=== PATIENT | female | born 1975 | race Caucasian/White ===

== ENCOUNTER 2016-07-30 20:45 | Emergency (ER) | payer MEDICARE ==
[2016-07-30] MEDS ORDERED: HYDROcodone/APAP 5/325MG 1 TAB TABLET PO ONE (21:45)
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
[2016-07-30 23:57] LABS: BASO # 0.1 x10^3/uL (0.0-0.2); BASO % 1 % (0-3); EOS % 1 % (0-3); HEMATOCRIT 42.2 % (36.0-47.0); HEMOGLOBIN 14.5 g/dL (12.0-15.5); LYMPH # 1.8 x10^3/uL (1.0-4.8); LYMPH % 17 % (24-48); MEAN CORPUSCULAR HEMOGLOBIN 34 pg (25-35); MEAN CORPUSCULAR HGB CONC 35 g/dL (31-37); MEAN CORPUSCULAR VOLUME 100 fL (79-100); MONO % 11 % (0-9); NEUT % 72 % (31-73); PLATELET COUNT 216 x10^3/uL (140-400); RED BLOOD COUNT 4.23 x10^6/uL (3.50-5.40); RED CELL DISTRIBUTION WIDTH 13.1 % (11.5-14.5); WHITE BLOOD COUNT 10.9 x10^3/uL (4.0-11.0)
[2016-07-31 00:04] LABS: CALCIUM 9.4 mg/dL (8.5-10.1); CREATININE 0.9 mg/dL (0.6-1.0); GFR 68.7; POTASSIUM 3.9 mmol/L (3.5-5.1)
[2016-07-31] MEDS: MORPHINE SULFATE 4 MG/ML DISP.SYRIN. IV/SQ PRN ×2 (00:19→01:10)
[2016-07-31 00:22] LABS: ALBUMIN 3.6 g/dL (3.4-5.0); ALBUMIN/GLOBULIN RATIO 0.7 (1.0-1.7); TOTAL BILIRUBIN 1.1 mg/dL (0.2-1.0); TOTAL PROTEIN 8.5 g/dL (6.4-8.2)
[2016-07-31 01:10] VITALS: BP 147/87
== END 2016-07-31 01:22 | disposition short-term general hospital (02) ==
LOC: EEVIPCON 20:45 → ER 20:45
DX: S02.609A Fracture of mandible, unspecified, initial encounter for closed fracture (principal); S02.2XXA Fracture of nasal bones, initial encounter for closed fracture; S00.11XA Contusion of right eyelid and periocular area, initial encounter; K02.9 Dental caries, unspecified; Y04.0XXA Assault by unarmed brawl or fight, initial encounter; Y93.89 Activity, other specified; Y92.89 Other specified places as the place of occurrence of the external cause; Y99.8 Other external cause status
CPT/HCPCS: 36415; 70450; 70486; 80053; 85027; 96374; 96376; 99285; J2270

== ENCOUNTER 2018-09-07 15:07 | Inpatient (IN) | payer MEDICARE, OTHER ==
[~2018-09-07] VITALS: Ht 167.6 cm; Wt 87.1 kg
[2018-09-07] MEDS ORDERED: IV NORMAL SALINE 1000ML BAG 1,000 ML IV ONE ×2 (15:45→17:00)
[2018-09-07] MEDS ORDERED: ONDANSETRON PF 4 MG/2 ML VIAL. IV ONE (15:45)
[2018-09-07] MEDS ORDERED: MORPHINE SULFATE 4 MG/ML VIAL. IV ONE (15:45)
[2018-09-07 15:50] LABS: BASO # 0.1 x10^3/uL (0.0-0.2); BASO % 1 % (0-3); EOS # 0.1 x10^3/uL (0.0-0.7); EOS % 0 % (0-3); HEMATOCRIT 33.2 % (36.0-47.0); HEMOGLOBIN 11.8 g/dL (12.0-15.5); LYMPH # 1.7 x10^3/uL (1.0-4.8); LYMPH % 12 % (24-48); MEAN CORPUSCULAR HEMOGLOBIN 35 pg (25-35); MEAN CORPUSCULAR HGB CONC 35 g/dL (31-37); MEAN CORPUSCULAR VOLUME 98 fL (79-100); MONO # 1.8 x10^3/uL (0.0-1.1); MONO % 13 % (0-9); NEUT # 10.3 x10^3uL (1.8-7.7); NEUT % 74 % (31-73); PLATELET COUNT 423 x10^3/uL (140-400); RED CELL DISTRIBUTION WIDTH 14.3 % (11.5-14.5); WHITE BLOOD COUNT 13.9 x10^3/uL (4.0-11.0)
[2018-09-07 16:07] LABS: ALBUMIN 2.2 g/dL (3.4-5.0); ALBUMIN/GLOBULIN RATIO 0.4 (1.0-1.7); CALCIUM 9.6 mg/dL (8.5-10.1); CREATININE 1.1 mg/dL (0.6-1.0); TOTAL BILIRUBIN 1.3 mg/dL (0.2-1.0); TOTAL PROTEIN 7.4 g/dL (6.4-8.2)
[2018-09-07 16:11] LABS: POTASSIUM 2.7 mmol/L (3.5-5.1)
[2018-09-07] MEDS: POTASSIUM CHLORIDE 10MEQ 100 ML IV SCH ×2 (16:55→18:27)
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
--- NOTE | 2018-09-07 17:06 | RAD ---
CT maxillofacial without contrast. HISTORY: Open wound lower jaw, increased drainage CT scan was performed through the facial bones without contrast. There is a plate with screws along the mandible on the left. There is an ununited fracture of the mandible. There is lucency about one or 2 of the screws. A chronic infection would be possible. There is lucency about the posterior molar on the right side. There are dental cavities in multiple teeth. There is a small abscess in the root of a molar on the left in the maxilla and on the right, and on the left. No other facial fracture is noted. Orbits are unremarkable. Parotid and submandibular glands are unremarkable. There is soft tissue swelling just lateral to the mandible on the left IMPRESSION: 1. Ununited left mandible fracture with probable chronic osteomyelitis. 2. Extensive dental disease. 3. No other facial fracture noted. PQRS Compliance Statement: One or more of the following individualized dose reduction techniques were utilized for this examination: 1. Automated exposure control 2. Adjustment of the mA and/or kV according to patient size 3. Use of iterative reconstruction technique Electronically signed by: Gavin Teixeira MD (09/07/2018 5:03 PM) [id number]
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
[2018-09-07] MEDS ORDERED: CEFEPIME HCL IV Push 2 GM VIAL. IVP ONE (18:15)
[2018-09-07] MEDS ORDERED: VANCOMYCIN 1.75 GM in IV NORMAL SALINE 500ML BAG 500 ML IV ONE (18:15)
[2018-09-07 18:16] VITALS: BP 86/49
[2018-09-07] MEDS ORDERED: VANCOMYCIN 2 GM in IV NORMAL SALINE 500ML BAG 500 ML IV ONE (19:00)
[2018-09-07 19:15] VITALS: BP 91/58
[2018-09-07] MEDS ORDERED: INSULIN LISPRO 300 UNITS/3 ML INSULN.PEN. SQ ONE (19:45)
[2018-09-07] MEDS ORDERED: DEXTROSE 50% 25 GM / 50ML DISP.SYRIN. IV PRN (19:45)
[2018-09-07] MEDS ORDERED: POTASSIUM CHLORIDE 20 MEQ TABLET.ER. PO ONE (19:45)
[2018-09-07] MEDS: HYDROcodone/APAP 10/325 1 TAB TABLET PO PRN (20:03)
[2018-09-07] MEDS: MORPHINE SULFATE 2 MG/ML VIAL. IV PRN ×2 (20:04→23:40)
[2018-09-07] MEDS: IV NORMAL SALINE 1000ML BAG 1,000 ML IV SCH (20:06)
[2018-09-07] MEDS ORDERED: METF10007 PO (20:11)
[2018-09-07 22:45] VITALS: BP 97/63
[2018-09-07] MEDS: LORazepam 0.5 MG TABLET PO PRN (22:55)
[2018-09-07] MEDS: PIPERACILLIN/TAZOBACTAM 3.375 GM in IV NORMAL SALINE 50ML 50 ML IV SCH (22:55)
[2018-09-08] MEDS: HYDROcodone/APAP 10/325 1 TAB TABLET PO PRN ×5 (02:26→23:02)
[2018-09-08 02:30] VITALS: BP 119/63
[2018-09-08] MEDS: PIPERACILLIN/TAZOBACTAM 3.375 GM in IV NORMAL SALINE 50ML 50 ML IV SCH ×4 (05:18→23:02)
[2018-09-08 05:55] LABS: CALCIUM 8.3 mg/dL (8.5-10.1); CREATININE 0.8 mg/dL (0.6-1.0); GFR 77.9; POTASSIUM 3.3 mmol/L (3.5-5.1)
[2018-09-08] MEDS: LORazepam 0.5 MG TABLET PO PRN ×3 (07:15→23:01)
[2018-09-08 07:44] VITALS: BP 88/48
--- NOTE | 2018-09-08 07:49 | PDOC ---
Provider Note Provider Note Pt seen and examined ID Consult dictated [id number] MELANI Barry MD Sep 08, 2018 07:49
[2018-09-08] MEDS: INSULIN LISPRO 300 UNITS/3 ML INSULN.PEN. SQ SCH ×3 (08:00→17:20)
--- NOTE | 2018-09-08 08:22 | EKG ---
[facility] [address] [place] [address] Test Date: 2018-09-07 Test Time: 16:41:51 Pat Name: STAS GONZALES Department: Room: Gender: F [employer] Generation Specialist: : 1975 Requested By: YOVANY PEÑA Order Number: [id number] Reading MD: Measurements Intervals [place] Rate: 82 P: 38 ME: 164 QRS: 74 QRSD: 96 T: 55 QT: 368 QTc: 432 Interpretive Statements SINUS RHYTHM NON SPECIFIC T ABNORMALITY BORDERLINE ECG No previous ECG available for comparison
--- NOTE | 2018-09-08 08:36 | CONS ---
DATE OF CONSULTATION: 09/08/2018 REFERRING PHYSICIAN: Dr. Soares. REASON FOR CONSULTATION: Antibiotic management for mandibular osteomyelitis. HISTORY OF PRESENT ILLNESS: A 43-year-old homeless female, who presents to the ER on 09/07/2018 with left jaw swelling and open area that is draining foul smelling green pus. The patient had surgery done in 07/2016 for fracture. She had a plate removal done at [facility] last year. She was told that there is another plate which needs to stay in place. She was supposed to have followup after the jaw surgery, but never did. She is a type 2 diabetic, who takes metformin and has been out for the last month. She had increased swelling, fatigue, body ache, worsening drainage and swelling as above. She was found to have lactic acidosis, leukocytosis, hypokalemia, and hyperglycemia. She underwent maxillofacial CT which showed ununited left mandibular fracture with probable chronic osteomyelitis, extensive dental disease, small abscess in the root of the molar on the left in the maxilla and the right and on the left, extensive dental disease, no other facial fracture noted. She received a dose of vancomycin and cefepime. Currently, she is on Zosyn. ID consult has been requested for antibiotic management. Maxillofacial surgeon has been consulted, which is pending at this time. Currently, the patient has swelling, pain over the left jaw with drainage as above, otherwise as above in HPI. REVIEW OF SYSTEMS: Negative except for above in HPI. CURRENT MEDICATIONS: Zosyn. Other medications reviewed in medication list. ALLERGIES: No known drug allergies. SOCIAL HISTORY: Smoking present. Homeless. Denies ETOH. Denies any illicit drug use. FAMILY HISTORY: As per HPI. PHYSICAL EXAMINATION: VITAL SIGNS: Temperature 98.3, pulse 75, respiratory rate 20, blood pressure 119/63, oxygen saturation 95% on room air. GENERAL: Alert, oriented x 3 female, lying in bed comfortably, in no acute distress. HEENT: Normocephalic, atraumatic, anicteric. Left jaw swelling, redness, drainage from an open wound over the left submandibular area, greenish yellow. Poor dentition. NECK: Supple, no JVD. LUNGS: Clear anteriorly. HEART: S1 and S2. No gallops or murmurs. ABDOMEN: Soft, nontender, nondistended. EXTREMITIES: No edema, no cyanosis. NEUROLOGIC: Alert and oriented x 3, grossly nonfocal. DERMATOLOGIC: Warm, dry. No generalized rash except for changes above in the left neck and jaw. PSYCHIATRIC: Cooperative, slightly anxious. LABORATORY DATA: WBC is 13.9, hemoglobin 11.8, hematocrit 33.2, platelets 423, neutrophils 74%. ESR 96. Sodium 137, potassium 3.3, chloride 101, bicarb 29, BUN 7, creatinine 0.8, glucose 167. Lactate 4.3 and repeat is 1.3, magnesium 1.0, albumin 2.2. IMAGING: Maxillofacial CT as above. IMPRESSION: 1. Left mandibular fracture, ununited, with nonhealing draining wound with " Plate in place" per pt with likely chronic osteomyelitis with cellulitis 2. History of mandibular fracture 2 years ago status post surgery with foreign body. 3. Status post removal of one plate ,foreign body a year ago at [facility]. 4. Diabetes mellitus, poorly controlled. 5. Lactic acidosis. 6. Leukocytosis. 7. Protein-calorie malnutrition. 8. Dental abscess. RECOMMENDATIONS: 1. Continue IV Zosyn. 2. Agree with maxillofacial surgeon. 3. The patient will need surgery as antibiotics alone will not be optimal and hardware removal if present also. 4. Follow up lab values. 5. Continue supportive care. 6. Follow up blood cultures. 7. If surgery is done, please send intraoperative cultures. Discussed with RN. Thank you, Dr. Soares, for consulting Infectious Disease to participate in this patient's care. We will follow along with you. MELANI MA MD DR: NAZANIN/jd JOB#: [id number] / [id number] SONIA
[2018-09-08] MEDS ORDERED: ONDANSETRON PF 4 MG/2 ML VIAL. IV PRN (09:30)
--- NOTE | 2018-09-08 10:49 | PDOC ---
PROGRESS NOTES Chief Complaint Chief Complaint left jaw infection SIRS no organ dysfunction/sepsis Homeless Critical hypokalemia secondary to poor by mouth-resolved Thrombocytosis in the background of infection Leukocytosis in the background of infection History of Present Illness History of Present Illness Left jaw seems to be getting better as per her relay She lived in the streets prior to coming here, agreeable to social work for [facility] [place] [facility] on discharge On IV Zosyn per ID Normal saline running at 75 mL Potassium 3.5 from 2.7 WBC 14, platelets 423. Plan Continue Zosyn per ID GI soft diet is okay IV fluids 2 L only then DC Replace potassium Social work consult for homelessness Okay to transfer out of [facility] floor dw RN at bedside maxillofacial surgeon was consulted Vitals Vitals Vital Signs Date Time Temp Pulse Resp B/P (MAP) Pulse Ox O2 Delivery O2 Flow Rate FiO2 09/08/18 09:50 95 Room Air 09/08/18 07:44 97.7 67 18 88/48 (61) 97.7 Physical Exam General: Alert, Oriented X3, Cooperative, Other (left jaw swelling, poor overall dentition, no open skin lesions or drainage) Heart: Regular rate, Normal S1, Normal S2, No murmurs Lungs: Clear Abdomen: Normal bowel sounds, Soft, No tenderness, No hepatosplenomegaly, No masses Extremities: No clubbing, No cyanosis, No edema, Normal pulses, No tenderness/swelling Skin: No rashes, No breakdown, No significant lesion Labs LABS Laboratory Tests Test 09/07/18 15:33 09/07/18 20:55 09/07/18 23:45 09/08/18 05:20 White Blood Count 13.9 x10^3/uL (4.0-11.0) Red Blood Count 3.40 x10^6/uL (3.50-5.40) Hemoglobin 11.8 g/dL (12.0-15.5) Hematocrit 33.2 % (36.0-47.0) Mean Corpuscular Volume 98 fL (79-100) Mean Corpuscular Hemoglobin 35 pg (25-35) Mean Corpuscular Hemoglobin Concent 35 g/dL (31-37) Red Cell Distribution Width 14.3 % (11.5-14.5) Platelet Count 423 x10^3/uL (140-400) Neutrophils (%) (Auto) 74 % (31-73) Lymphocytes (%) (Auto) 12 % (24-48) Monocytes (%) (Auto) 13 % (0-9) Eosinophils (%) (Auto) 0 % (0-3) Basophils (%) (Auto) 1 % (0-3) Neutrophils # (Auto) 10.3 x10^3uL (1.8-7.7) Lymphocytes # (Auto) 1.7 x10^3/uL (1.0-4.8) Monocytes # (Auto) 1.8 x10^3/uL (0.0-1.1) Eosinophils # (Auto) 0.1 x10^3/uL (0.0-0.7) Basophils # (Auto) 0.1 x10^3/uL (0.0-0.2) Erythrocyte Sedimentation Rate 96 (0-25) Sodium Level 131 mmol/L (136-145) 137 mmol/L (136-145) Potassium Level 2.7 mmol/L (3.5-5.1) 3.3 mmol/L (3.5-5.1) Chloride Level 91 mmol/L (98-107) 101 mmol/L (98-107) Carbon Dioxide Level 30 mmol/L (21-32) 29 mmol/L (21-32) Anion Gap 10 (6-14) 7 (6-14) Blood Urea Nitrogen 8 mg/dL (7-20) 7 mg/dL (7-20) Creatinine 1.1 mg/dL (0.6-1.0) 0.8 mg/dL (0.6-1.0) Estimated GFR (Cockcroft-Gault) 54.0 77.9 BUN/Creatinine Ratio 7 (6-20) Glucose Level 352 mg/dL (70-99) 167 mg/dL (70-99) Lactic Acid Level 4.3 mmol/L (0.4-2.0) 1.3 mmol/L (0.4-2.0) Calcium Level 9.6 mg/dL (8.5-10.1) 8.3 mg/dL (8.5-10.1) Magnesium Level 1.0 mg/dL (1.8-2.4) Total Bilirubin 1.3 mg/dL (0.2-1.0) Aspartate Amino Transf (AST/SGOT) 19 U/L (15-37) Alanine Aminotransferase (ALT/SGPT) 33 U/L (14-59) Alkaline Phosphatase 146 U/L (46-116) Total Protein 7.4 g/dL (6.4-8.2) Albumin 2.2 g/dL (3.4-5.0) Albumin/Globulin Ratio 0.4 (1.0-1.7) Glucose (Fingerstick) 308 mg/dL (70-99) Test 09/08/18 07:42 Glucose (Fingerstick) 147 mg/dL (70-99) Assessment and Plan Assessmemt and Plan Problems Medical Problems: (1) Chronic osteomyelitis of jaw Status: Acute (2) Hypokalemia Status: Acute (3) Infection of mandible Status: Acute (4) Septic shock Status: Acute (5) Severe sepsis Status: Acute Comment Review of Relevant I have reviewed the following items javi (where applicable) has been applied. Labs Laboratory Tests Test 09/07/18 15:33 09/07/18 20:55 09/07/18 23:45 09/08/18 05:20 White Blood Count 13.9 x10^3/uL (4.0-11.0) Red Blood Count 3.40 x10^6/uL (3.50-5.40) Hemoglobin 11.8 g/dL (12.0-15.5) Hematocrit 33.2 % (36.0-47.0) Mean Corpuscular Volume 98 fL (79-100) Mean Corpuscular Hemoglobin 35 pg (25-35) Mean Corpuscular Hemoglobin Concent 35 g/dL (31-37) Red Cell Distribution Width 14.3 % (11.5-14.5) Platelet Count 423 x10^3/uL (140-400) Neutrophils (%) (Auto) 74 % (31-73) Lymphocytes (%) (Auto) 12 % (24-48) Monocytes (%) (Auto) 13 % (0-9) Eosinophils (%) (Auto) 0 % (0-3) Basophils (%) (Auto) 1 % (0-3) Neutrophils # (Auto) 10.3 x10^3uL (1.8-7.7) Lymphocytes # (Auto) 1.7 x10^3/uL (1.0-4.8) Monocytes # (Auto) 1.8 x10^3/uL (0.0-1.1) Eosinophils # (Auto) 0.1 x10^3/uL (0.0-0.7) Basophils # (Auto) 0.1 x10^3/uL (0.0-0.2) Erythrocyte Sedimentation Rate 96 (0-25) Sodium Level 131 mmol/L (136-145) 137 mmol/L (136-145) Potassium Level 2.7 mmol/L (3.5-5.1) 3.3 mmol/L (3.5-5.1) Chloride Level 91 mmol/L (98-107) 101 mmol/L (98-107) Carbon Dioxide Level 30 mmol/L (21-32) 29 mmol/L (21-32) Anion Gap 10 (6-14) 7 (6-14) Blood Urea Nitrogen 8 mg/dL (7-20) 7 mg/dL (7-20) Creatinine 1.1 mg/dL (0.6-1.0) 0.8 mg/dL (0.6-1.0) Estimated GFR (Cockcroft-Gault) 54.0 77.9 BUN/Creatinine Ratio 7 (6-20) Glucose Level 352 mg/dL (70-99) 167 mg/dL (70-99) Lactic Acid Level 4.3 mmol/L (0.4-2.0) 1.3 mmol/L (0.4-2.0) Calcium Level 9.6 mg/dL (8.5-10.1) 8.3 mg/dL (8.5-10.1) Magnesium Level 1.0 mg/dL (1.8-2.4) Total Bilirubin 1.3 mg/dL (0.2-1.0) Aspartate Amino Transf (AST/SGOT) 19 U/L (15-37) Alanine Aminotransferase (ALT/SGPT) 33 U/L (14-59) Alkaline Phosphatase 146 U/L (46-116) Total Protein 7.4 g/dL (6.4-8.2) Albumin 2.2 g/dL (3.4-5.0) Albumin/Globulin Ratio 0.4 (1.0-1.7) Glucose (Fingerstick) 308 mg/dL (70-99) Test 09/08/18 07:42 Glucose (Fingerstick) 147 mg/dL (70-99) Laboratory Tests Test 09/07/18 15:33 09/07/18 20:55 09/07/18 23:45 09/08/18 05:20 White Blood Count 13.9 x10^3/uL (4.0-11.0) Red Blood Count 3.40 x10^6/uL (3.50-5.40) Hemoglobin 11.8 g/dL (12.0-15.5) Hematocrit 33.2 % (36.0-47.0) Mean Corpuscular Volume 98 fL (79-100) Mean Corpuscular Hemoglobin 35 pg (25-35) Mean Corpuscular Hemoglobin Concent 35 g/dL (31-37) Red Cell Distribution Width 14.3 % (11.5-14.5) Platelet Count 423 x10^3/uL (140-400) Neutrophils (%) (Auto) 74 % (31-73) Lymphocytes (%) (Auto) 12 % (24-48) Monocytes (%) (Auto) 13 % (0-9) Eosinophils (%) (Auto) 0 % (0-3) Basophils (%) (Auto) 1 % (0-3) Neutrophils # (Auto) 10.3 x10^3uL (1.8-7.7) Lymphocytes # (Auto) 1.7 x10^3/uL (1.0-4.8) Monocytes # (Auto) 1.8 x10^3/uL (0.0-1.1) Eosinophils # (Auto) 0.1 x10^3/uL (0.0-0.7) Basophils # (Auto) 0.1 x10^3/uL (0.0-0.2) Erythrocyte Sedimentation Rate 96 (0-25) Sodium Level 131 mmol/L (136-145) 137 mmol/L (136-145) Potassium Level 2.7 mmol/L (3.5-5.1) 3.3 mmol/L (3.5-5.1) Chloride Level 91 mmol/L (98-107) 101 mmol/L (98-107) Carbon Dioxide Level 30 mmol/L (21-32) 29 mmol/L (21-32) Anion Gap 10 (6-14) 7 (6-14) Blood Urea Nitrogen 8 mg/dL (7-20) 7 mg/dL (7-20) Creatinine 1.1 mg/dL (0.6-1.0) 0.8 mg/dL (0.6-1.0) Estimated GFR (Cockcroft-Gault) 54.0 77.9 BUN/Creatinine Ratio 7 (6-20) Glucose Level 352 mg/dL (70-99) 167 mg/dL (70-99) Lactic Acid Level 4.3 mmol/L (0.4-2.0) 1.3 mmol/L (0.4-2.0) Calcium Level 9.6 mg/dL (8.5-10.1) 8.3 mg/dL (8.5-10.1) Magnesium Level 1.0 mg/dL (1.8-2.4) Total Bilirubin 1.3 mg/dL (0.2-1.0) Aspartate Amino Transf (AST/SGOT) 19 U/L (15-37) Alanine Aminotransferase (ALT/SGPT) 33 U/L (14-59) Alkaline Phosphatase 146 U/L (46-116) Total Protein 7.4 g/dL (6.4-8.2) Albumin 2.2 g/dL (3.4-5.0) Albumin/Globulin Ratio 0.4 (1.0-1.7) Glucose (Fingerstick) 308 mg/dL (70-99) Test 09/08/18 07:42 Glucose (Fingerstick) 147 mg/dL (70-99) Medications Current Medications Sodium Chloride 1,000 ml @ 1,000 mls/hr 1X ONCE IV Last administered on 09/07/18at 15:49; Start 09/07/18 at 15:45; Stop 09/07/18 at 16:44; Status DC Ondansetron HCl (Zofran) 4 mg 1X ONCE IV Last administered on 09/07/18at 15:50; Start 09/07/18 at 15:45; Stop 09/07/18 at 15:46; Status DC Morphine Sulfate (Morphine Sulfate) 4 mg 1X ONCE IV Last administered on 09/07/18at 15:49; Start 09/07/18 at 15:45; Stop 09/07/18 at 15:46; Status DC Sodium Chloride 1,000 ml @ 1,000 mls/hr 1X ONCE IV Last administered on 09/07/18at 16:55; Start 09/07/18 at 17:00; Stop 09/07/18 at 17:59; Status DC Potassium Chloride/Water 100 ml @ 100 mls/hr Q1H IV Last administered on 09/07/18at 18:27; Start 09/07/18 at 17:00; Stop 09/07/18 at 19:41; Status DC Cefepime HCl (Maxipime) 2 gm 1X ONCE IVP Last administered on 09/07/18at 18:43; Start 09/07/18 at 18:15; Stop 09/07/18 at 18:16; Status DC Vancomycin HCl 1.75 gm/Sodium Chloride 500 ml @ 250 mls/hr 1X ONCE IV ; Start 09/07/18 at 18:15; Stop 09/07/18 at 20:14; Status UNV Vancomycin HCl 2 gm/Sodium Chloride 500 ml @ 250 mls/hr ONCE ONCE IV Last administered on 09/07/18at 19:21; Start 09/07/18 at 19:00; Stop 09/07/18 at 20:59; Status DC Piperacillin Sod/ Tazobactam Sod 3.375 gm/Sodium Chloride 50 ml @ 100 mls/hr Q6HRS IV Last administered on 09/08/18at 05:18; Start 09/08/18 at 00:00 Potassium Chloride (Klor-Con) 40 meq 1X ONCE PO Last administered on 09/07/18at 20:03; Start 09/07/18 at 19:45; Stop 09/07/18 at 19:46; Status DC Sodium Chloride 1,000 ml @ 75 mls/hr [id number] IV Last administered on 09/07/18at 20:06; Start 09/07/18 at 19:45 Morphine Sulfate (Morphine Sulfate) 2 mg PRN Q2HR PRN IV PAIN Last administered on 09/07/18at 23:40; Start 09/07/18 at 19:45 Acetaminophen/ Hydrocodone Bitart (Lortab 10/325) 1 tab PRN Q4HRS PRN PO PAIN Last administered on 09/08/18at 07:16; Start 09/07/18 at 19:45 Insulin Human Lispro (HumaLOG) 14 units 1X ONCE SQ Last administered on 09/07/18at 20:05; Start 09/07/18 at 19:45; Stop 09/07/18 at 19:47; Status DC Insulin Human Lispro (HumaLOG) 0-7 UNITS TIDWMEALS SQ ; Start 09/08/18 at 08:00 Dextrose (Dextrose 50%-Water Syringe) 12.5 gm PRN Q15MIN PRN IV SEE COMMENTS; Start 09/07/18 at 19:45 Lorazepam (Ativan) 0.5 mg PRN Q6HRS PRN PO ANXIETY / AGITATION Last administer ed on 09/08/18at 07:15; Start 09/07/18 at 21:45 Nicotine (Nicoderm Cq 21mg) 1 patch DAILY TD ; Start 09/08/18 at 09:00 Ondansetron HCl (Zofran) 4 mg PRN Q6HRS PRN IV NAUSEA/VOMITING; Start 09/08/18 at 09:30 Potassium Chloride (Klor-Con) 20 meq DAILYWBKFT PO ; Start 09/08/18 at 10:00 Active Scripts Active Reported Metformin Hcl 1,000 Mg Tablet 1,000 Mg PO BIDWMEALS Vitals/I & O Vital Sign - Last 24 Hours 09/07/18 09/07/18 09/07/18 09/07/18 15:17 15:49 16:15 17:15 Temp 98.3 98.3 Pulse 99 96 82 Resp 20 18 20 20 B/P (MAP) 128/65 (86) 112/56 (74) 113/63 (80) Pulse Ox 96 96 97 97 O2 Delivery Room Air Room Air Room Air Room Air 09/07/18 09/07/18 09/07/18 09/07/18 18:16 18:30 19:15 20:03 Temp 98.0 98.3 98.0 98.3 Pulse 75 83 Resp 16 18 18 B/P (MAP) 86/49 (61) 91/58 (69) Pulse Ox 95 96 O2 Delivery Room Air Room Air Room Air Room Air 09/07/18 09/07/18 09/07/18 09/07/18 20:04 20:38 22:45 23:40 Temp 98.0 98.0 Pulse 81 Resp 20 20 20 B/P (MAP) 97/63 (74) Pulse Ox 93 O2 Delivery Room Air Room Air Room Air Room Air 09/08/18 09/08/18 09/08/18 09/08/18 00:10 02:26 02:30 03:26 Temp 98.3 98.3 Pulse 75 Resp 20 20 18 20 B/P (MAP) 119/63 (81) Pulse Ox 95 95 O2 Delivery Room Air Room Air Room Air 09/08/18 09/08/18 09/08/18 09/08/18 07:16 07:44 08:00 09:50 Temp 97.7 97.7 Pulse 67 Resp 18 B/P (MAP) 88/48 (61) Pulse Ox 95 95 95 O2 Delivery Room Air Room Air Room Air Room Air Intake and Output 09/07/18 09/07/18 09/08/18 14:59 22:59 06:59 Intake Total 1000 ml 1500 ml Output Total 500 ml 900 ml Balance 500 ml 600 ml SAMI COLON MD Sep 08, 2018 10:49
[2018-09-08 11:00] VITALS: BP 96/54
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
[2018-09-08] MEDS ORDERED: INSULIN LISPRO 300 UNITS/3 ML INSULN.PEN. SQ ONE (13:00)
[2018-09-08] MEDS: POTASSIUM CHLORIDE 20 MEQ TABLET.ER. PO SCH (13:15)
[2018-09-08] MEDS: NICOTINE 21MG PATCH. TD SCH (13:17)
[2018-09-08] MEDS: IV NORMAL SALINE 1000ML BAG 1,000 ML IV SCH ×2 (13:17→22:25)
[2018-09-08] MEDS ORDERED: diphenhydrAMINE HCL 25 MG CAPSULE PO PRN (13:30)
[2018-09-08] MEDS: methylPREDNISolone SOD SUCC PF 40 MG/ML VIAL. IV SCH ×2 (13:44→20:46)
[2018-09-08 15:00] VITALS: BP 115/61
--- NOTE | 2018-09-08 15:27 | NUR ---
SS following up with discharge planning. SS received phone contact from Jean-Claude with the PAT team stating that pt has had previous services with the [facility] and reports history of alcohol abuse. Jean-Claude reported that pt "minimizes her drinking" and has a history of bipolar and depression. He reported that pt reported that she stays on others couches and prefers not to go to a homeless intermediate and does not feel the need for rehab for alcohol use at this time. He reported that he provided pt with a referral to [facility] for services. SS met with pt to discuss discharge planning. Pt reported that she was contacting friends and family to find someone to stay with. Pt reported that she preferred not to go to a homeless intermediate. Pt also requested pants, a shirt, and socks. Pt's RN notified.
--- NOTE | 2018-09-08 16:25 | NUR ---
Wound Care Wound care consult for left jaw injury. Pt has indented incision with open base. Cleansed area and applied Aquacel Ag and Telfa pad. Recommend to change every 3 days. Left elbow and left knee are scabbed abrasions, applied skin prep. No other wounds noted on full skin inspection. Pt educated on PU prevention. WC will continue to follow for possible changes.
[2018-09-08] MEDS: metFORMIN 500 MG TABLET PO SCH (17:15)
[2018-09-08 19:25] VITALS: BP 131/75
[2018-09-08] MEDS ORDERED: INSULIN GLARGINE 300 UNITS/3 ML INSULN.PEN. SQ SCH (21:00)
[2018-09-08 22:23] VITALS: BP 163/92
[2018-09-09 02:44] VITALS: BP 150/82
[2018-09-09] MEDS: PIPERACILLIN/TAZOBACTAM 3.375 GM in IV NORMAL SALINE 50ML 50 ML IV SCH ×4 (04:56→23:58)
[2018-09-09] MEDS: IV NORMAL SALINE 1000ML BAG 1,000 ML IV SCH (04:56)
[2018-09-09] MEDS: LORazepam 0.5 MG TABLET PO PRN ×3 (04:57→22:46)
--- NOTE | 2018-09-09 06:58 | PDOC ---
Infectious Disease Note Subjective: Subjective pt cont to have lt jaw swelling and pain no f/c/n/v cough but chronic ROS: ROS Negative except for above. Vital Signs: Vital Signs Vital Signs Date Time Temp Pulse Resp B/P (MAP) Pulse Ox O2 Delivery O2 Flow Rate FiO2 09/09/18 02:44 98.0 72 18 150/82 (104) 95 Room Air 98.0 Physical Exam: PHYSICAL EXAM GENERAL: Alert, oriented x 3 female, lying in bed comfortably, in no acute distress. HEENT: Normocephalic, atraumatic, anicteric. Left jaw swelling, redness, drainage from an open wound over the left submandibular area, greenish yellow. Poor dentition. NECK: Supple, no JVD. LUNGS: Clear anteriorly. HEART: S1 and S2. No gallops or murmurs. ABDOMEN: Soft, nontender, nondistended. EXTREMITIES: No edema, no cyanosis. NEUROLOGIC: Alert and oriented x 3, grossly nonfocal. DERMATOLOGIC: Warm, dry. No generalized rash except for changes above in the left neck and jaw. PSYCHIATRIC: Cooperative, slightly anxious. Medications: Inpatient Meds: Current Medications Medications (Trade) Dose Ordered Sig/Jose Luis Start Time Stop Time Status Last Admin Dose Admin Acetaminophen/ Hydrocodone Bitart (Lortab 10/325) 1 tab PRN Q4HRS PRN 09/07/18 19:45 09/08/18 23:02 1 TAB Cefepime HCl (Maxipime) 2 gm 1X ONCE 09/07/18 18:15 09/07/18 18:16 DC 09/07/18 18:43 2 GM Dextrose (Dextrose 50%-Water Syringe) 12.5 gm PRN Q15MIN PRN 09/07/18 19:45 Diphenhydramine HCl (Benadryl) 25 mg PRN Q6HRS PRN 09/08/18 13:30 09/08/18 20:47 25 MG Insulin Glargine (Lantus) 15 units QHS 09/08/18 21:00 09/08/18 20:42 15 UNITS Insulin Human Lispro (HumaLOG) 12 units 1X ONCE 09/08/18 13:00 09/08/18 13:01 DC 09/08/18 13:25 12 UNITS Lorazepam (Ativan) 0.5 mg PRN Q6HRS PRN 09/07/18 21:45 09/09/18 04:57 0.5 MG Metformin HCl (Glucophage) 1,000 mg BIDWMEALS 09/08/18 17:00 09/08/18 17:15 1,000 MG Methylprednisolone Sodium Succinate (SOLU-Medrol 40MG VIAL) 40 mg Q12HR 09/08/18 13:30 09/08/18 20:46 40 MG Morphine Sulfate (Morphine Sulfate) 2 mg PRN Q2HR PRN 09/07/18 19:45 09/07/18 23:40 2 MG Nicotine (Nicoderm Cq 21mg) 1 patch DAILY 09/08/18 09:00 09/08/18 13:17 1 PATCH Ondansetron HCl (Zofran) 4 mg PRN Q6HRS PRN 09/08/18 09:30 Piperacillin Sod/ Tazobactam Sod 3.375 gm/Sodium Chloride 50 ml @ 100 mls/hr Q6HRS 09/08/18 00:00 09/09/18 04:56 100 MLS/HR Potassium Chloride/Water 100 ml @ 100 mls/hr Q1H 09/07/18 17:00 09/07/18 19:41 DC 09/07/18 18:27 100 MLS/HR Potassium Chloride (Klor-Con) 20 meq [id number] 09/08/18 10:00 09/08/18 13:15 20 MEQ Sodium Chloride 1,000 ml @ 75 mls/hr [id number] 09/07/18 19:45 09/09/18 04:56 75 MLS/HR Vancomycin HCl 1.75 gm/Sodium Chloride 500 ml @ 250 mls/hr 1X ONCE 09/07/18 18:15 09/07/18 20:14 UNV Vancomycin HCl 2 gm/Sodium Chloride 500 ml @ 250 mls/hr ONCE ONCE 09/07/18 19:00 09/07/18 20:59 DC 09/07/18 19:21 250 MLS/HR Labs: Lab Laboratory Tests Test 09/08/18 07:42 09/08/18 11:41 09/08/18 16:41 09/08/18 20:38 Glucose (Fingerstick) 147 mg/dL (70-99) 376 mg/dL (70-99) 232 mg/dL (70-99) 303 mg/dL (70-99) Objective: Assessment: 1. Left mandibular fracture, ununited, with nonhealing draining wound with " Plate in place" per pt with likely chronic osteomyelitis with cellulitis 2. History of mandibular fracture 2 years ago status post surgery with foreign body. 3. Status post removal of one plate ,foreign body a year ago at [facility]. 4. Diabetes mellitus, poorly controlled. 5. Lactic acidosis. 6. Leukocytosis. 7. Protein-calorie malnutrition. 8. Dental abscess. Plan: Plan of Care Continue IV Zosyn. Agree with maxillofacial surgeon evaluation,pending at this time Patient will need surgery as antibiotics alone will not be optimal and hardware removal if present also. Follow up lab values. Continue supportive care. Follow up blood cultures. When surgery is done, please send intraoperative cultures including jose e, fungal and afb Discussed with RN. MELANI MA MD Sep 09, 2018 06:58
[2018-09-09 07:00] VITALS: BP 143/88
[2018-09-09] MEDS: POTASSIUM CHLORIDE 20 MEQ TABLET.ER. PO SCH (08:36)
[2018-09-09] MEDS: metFORMIN 500 MG TABLET PO SCH ×2 (08:36→17:37)
[2018-09-09] MEDS: methylPREDNISolone SOD SUCC PF 40 MG/ML VIAL. IV SCH ×2 (08:36→21:14)
[2018-09-09] MEDS: HYDROcodone/APAP 10/325 1 TAB TABLET PO PRN ×4 (08:36→22:47)
[2018-09-09] MEDS: NICOTINE 21MG PATCH. TD SCH (08:36)
[2018-09-09] MEDS: INSULIN LISPRO 300 UNITS/3 ML INSULN.PEN. SQ SCH ×3 (08:44→17:43)
[2018-09-09] MEDS ORDERED: DEXTROSE 50% 25 GM / 50ML DISP.SYRIN. IV PRN (09:15)
[2018-09-09 09:55] LABS: BASO % 0 % (0-3); EOS % 0 % (0-3); LYMPH # 1.5 x10^3/uL (1.0-4.8); LYMPH % 14 % (24-48); MEAN CORPUSCULAR HEMOGLOBIN 35 pg (25-35); MEAN CORPUSCULAR HGB CONC 34 g/dL (31-37); MEAN CORPUSCULAR VOLUME 101 fL (79-100); MONO # 0.7 x10^3/uL (0.0-1.1); MONO % 7 % (0-9); NEUT # 8.3 x10^3uL (1.8-7.7); NEUT % 78 % (31-73); PLATELET COUNT 426 x10^3/uL (140-400); RED BLOOD COUNT 3.48 x10^6/uL (3.50-5.40); RED CELL DISTRIBUTION WIDTH 14.8 % (11.5-14.5); WHITE BLOOD COUNT 10.5 x10^3/uL (4.0-11.0)
[2018-09-09] MEDS ORDERED: hydroCHLOROthiazide 12.5 MG CAPSULE PO ONE (10:00)
[2018-09-09] MEDS ORDERED: LISINOPRIL 10 MG TABLET PO ONE (10:00)
[2018-09-09 10:04] LABS: CALCIUM 8.7 mg/dL (8.5-10.1); GFR 60.2; POTASSIUM 3.7 mmol/L (3.5-5.1)
[2018-09-09 11:00] VITALS: BP 171/86
[2018-09-09 11:16] LABS: HEMOGLOBIN A1C 7.9 % (4.8-5.6)
--- NOTE | 2018-09-09 11:57 | PDOC ---
PROGRESS NOTES Chief Complaint Chief Complaint left jaw infection SIRS no organ dysfunction/sepsis Homeless Critical hypokalemia secondary to poor by mouth-resolved Thrombocytosis in the background of infection Leukocytosis in the background of infection History of Present Illness History of Present Illness Left jaw seems to be getting better Left jaw wound I have personally inspected, looks dry clean, packing is dry No fever, no white count ID note reviewed- But unfortunately maxillofacial surgeon is out of town Plan Continue Zosyn per ID GI soft diet is okay Social work consult for homelessness Okay to transfer out of [facility] floor dw RN at bedside maxillofacial surgeon out of town I dw with pt target home tmr once ID changes to PO Vitals Vitals Vital Signs Date Time Temp Pulse Resp B/P (MAP) Pulse Ox O2 Delivery O2 Flow Rate FiO2 09/09/18 11:00 97.6 67 18 171/86 (114) 97 Room Air 97.6 Physical Exam Physical Exam GENERAL: Alert, oriented x 3 female, lying in bed comfortably, in no acute distress. HEENT: Normocephalic, atraumatic, anicteric. Left jaw swelling, redness, drainage from an open wound over the left submandibular area, greenish yellow. Poor dentition. NECK: Supple, no JVD. LUNGS: Clear anteriorly. HEART: S1 and S2. No gallops or murmurs. ABDOMEN: Soft, nontender, nondistended. EXTREMITIES: No edema, no cyanosis. NEUROLOGIC: Alert and oriented x 3, grossly nonfocal. DERMATOLOGIC: Warm, dry. No generalized rash except for changes above in the left neck and jaw. PSYCHIATRIC: Cooperative, slightly anxious. General: Alert, Oriented X3, Cooperative, Other (left jaw swelling, poor overall dentition, no open skin lesions or drainage) Heart: Regular rate, Normal S1, Normal S2, No murmurs Lungs: Clear Abdomen: Normal bowel sounds, Soft, No tenderness, No hepatosplenomegaly, No masses Extremities: No clubbing, No cyanosis, No edema, Normal pulses, No tender ness/swelling Skin: No rashes, No breakdown, No significant lesion Labs LABS Laboratory Tests Test 09/08/18 16:41 09/08/18 20:38 09/09/18 07:29 09/09/18 09:35 Glucose (Fingerstick) 232 mg/dL (70-99) 303 mg/dL (70-99) 337 mg/dL (70-99) White Blood Count 10.5 x10^3/uL (4.0-11.0) Red Blood Count 3.48 x10^6/uL (3.50-5.40) Hemoglobin 12.0 g/dL (12.0-15.5) Hematocrit 35.0 % (36.0-47.0) Mean Corpuscular Volume 101 fL (79-100) Mean Corpuscular Hemoglobin 35 pg (25-35) Mean Corpuscular Hemoglobin Concent 34 g/dL (31-37) Red Cell Distribution Width 14.8 % (11.5-14.5) Platelet Count 426 x10^3/uL (140-400) Neutrophils (%) (Auto) 78 % (31-73) Lymphocytes (%) (Auto) 14 % (24-48) Monocytes (%) (Auto) 7 % (0-9) Eosinophils (%) (Auto) 0 % (0-3) Basophils (%) (Auto) 0 % (0-3) Neutrophils # (Auto) 8.3 x10^3uL (1.8-7.7) Lymphocytes # (Auto) 1.5 x10^3/uL (1.0-4.8) Monocytes # (Auto) 0.7 x10^3/uL (0.0-1.1) Eosinophils # (Auto) 0.0 x10^3/uL (0.0-0.7) Basophils # (Auto) 0.0 x10^3/uL (0.0-0.2) Sodium Level 138 mmol/L (136-145) Potassium Level 3.7 mmol/L (3.5-5.1) Chloride Level 103 mmol/L (98-107) Carbon Dioxide Level 27 mmol/L (21-32) Anion Gap 8 (6-14) Blood Urea Nitrogen 10 mg/dL (7-20) Creatinine 1.0 mg/dL (0.6-1.0) Estimated GFR (Cockcroft-Gault) 60.2 Glucose Level 376 mg/dL (70-99) Calcium Level 8.7 mg/dL (8.5-10.1) Test 09/09/18 11:41 Glucose (Fingerstick) 328 mg/dL (70-99) Review of Systems Review of Systems Left jaw pain otherwise the rest of ROS 14 point negative Assessment and Plan Assessmemt and Plan Problems Medical Problems: (1) Chronic osteomyelitis of jaw Status: Acute (2) Hypokalemia Status: Acute (3) Infection of mandible Status: Acute (4) Septic shock Status: Acute (5) Severe sepsis Status: Acute Comment Review of Relevant I have reviewed the following items javi (where applicable) has been applied. Labs Laboratory Tests Test 09/07/18 15:33 09/07/18 20:55 09/07/18 23:45 09/08/18 05:20 White Blood Count 13.9 x10^3/uL (4.0-11.0) Red Blood Count 3.40 x10^6/uL (3.50-5.40) Hemoglobin 11.8 g/dL (12.0-15.5) Hematocrit 33.2 % (36.0-47.0) Mean Corpuscular Volume 98 fL (79-100) Mean Corpuscular Hemoglobin 35 pg (25-35) Mean Corpuscular Hemoglobin Concent 35 g/dL (31-37) Red Cell Distribution Width 14.3 % (11.5-14.5) Platelet Count 423 x10^3/uL (140-400) Neutrophils (%) (Auto) 74 % (31-73) Lymphocytes (%) (Auto) 12 % (24-48) Monocytes (%) (Auto) 13 % (0-9) Eosinophils (%) (Auto) 0 % (0-3) Basophils (%) (Auto) 1 % (0-3) Neutrophils # (Auto) 10.3 x10^3uL (1.8-7.7) Lymphocytes # (Auto) 1.7 x10^3/uL (1.0-4.8) Monocytes # (Auto) 1.8 x10^3/uL (0.0-1.1) Eosinophils # (Auto) 0.1 x10^3/uL (0.0-0.7) Basophils # (Auto) 0.1 x10^3/uL (0.0-0.2) Erythrocyte Sedimentation Rate 96 (0-25) Sodium Level 131 mmol/L (136-145) 137 mmol/L (136-145) Potassium Level 2.7 mmol/L (3.5-5.1) 3.3 mmol/L (3.5-5.1) Chloride Level 91 mmol/L (98-107) 101 mmol/L (98-107) Carbon Dioxide Level 30 mmol/L (21-32) 29 mmol/L (21-32) Anion Gap 10 (6-14) 7 (6-14) Blood Urea Nitrogen 8 mg/dL (7-20) 7 mg/dL (7-20) Creatinine 1.1 mg/dL (0.6-1.0) 0.8 mg/dL (0.6-1.0) Estimated GFR (Cockcroft-Gault) 54.0 77.9 BUN/Creatinine Ratio 7 (6-20) Glucose Level 352 mg/dL (70-99) 167 mg/dL (70-99) Lactic Acid Level 4.3 mmol/L (0.4-2.0) 1.3 mmol/L (0.4-2.0) Calcium Level 9.6 mg/dL (8.5-10.1) 8.3 mg/dL (8.5-10.1) Magnesium Level 1.0 mg/dL (1.8-2.4) Total Bilirubin 1.3 mg/dL (0.2-1.0) Aspartate Amino Transf (AST/SGOT) 19 U/L (15-37) Alanine Aminotransferase (ALT/SGPT) 33 U/L (14-59) Alkaline Phosphatase 146 U/L (46-116) Total Protein 7.4 g/dL (6.4-8.2) Albumin 2.2 g/dL (3.4-5.0) Albumin/Globulin Ratio 0.4 (1.0-1.7) Glucose (Fingerstick) 308 mg/dL (70-99) Hemoglobin A1c 7.9 % (4.8-5.6) Test 09/08/18 07:42 09/08/18 11:41 09/08/18 16:41 09/08/18 20:38 Glucose (Fingerstick) 147 mg/dL (70-99) 376 mg/dL (70-99) 232 mg/dL (70-99) 303 mg/dL (70-99) Test 09/09/18 07:29 09/09/18 09:35 09/09/18 11:41 Glucose (Fingerstick) 337 mg/dL (70-99) 328 mg/dL (70-99) White Blood Count 10.5 x10^3/uL (4.0-11.0) Red Blood Count 3.48 x10^6/uL (3.50-5.40) Hemoglobin 12.0 g/dL (12.0-15.5) Hematocrit 35.0 % (36.0-47.0) Mean Corpuscular Volume 101 fL (79-100) Mean Corpuscular Hemoglobin 35 pg (25-35) Mean Corpuscular Hemoglobin Concent 34 g/dL (31-37) Red Cell Distribution Width 14.8 % (11.5-14.5) Platelet Count 426 x10^3/uL (140-400) Neutrophils (%) (Auto) 78 % (31-73) Lymphocytes (%) (Auto) 14 % (24-48) Monocytes (%) (Auto) 7 % (0-9) Eosinophils (%) (Auto) 0 % (0-3) Basophils (%) (Auto) 0 % (0-3) Neutrophils # (Auto) 8.3 x10^3uL (1.8-7.7) Lymphocytes # (Auto) 1.5 x10^3/uL (1.0-4.8) Monocytes # (Auto) 0.7 x10^3/uL (0.0-1.1) Eosinophils # (Auto) 0.0 x10^3/uL (0.0-0.7) Basophils # (Auto) 0.0 x10^3/uL (0.0-0.2) Sodium Level 138 mmol/L (136-145) Potassium Level 3.7 mmol/L (3.5-5.1) Chloride Level 103 mmol/L (98-107) Carbon Dioxide Level 27 mmol/L (21-32) Anion Gap 8 (6-14) Blood Urea Nitrogen 10 mg/dL (7-20) Creatinine 1.0 mg/dL (0.6-1.0) Estimated GFR (Cockcroft-Gault) 60.2 Glucose Level 376 mg/dL (70-99) Calcium Level 8.7 mg/dL (8.5-10.1) Laboratory Tests Test 09/08/18 16:41 09/08/18 20:38 09/09/18 07:29 09/09/18 09:35 Glucose (Fingerstick) 232 mg/dL (70-99) 303 mg/dL (70-99) 337 mg/dL (70-99) White Blood Count 10.5 x10^3/uL (4.0-11.0) Red Blood Count 3.48 x10^6/uL (3.50-5.40) Hemoglobin 12.0 g/dL (12.0-15.5) Hematocrit 35.0 % (36.0-47.0) Mean Corpuscular Volume 101 fL (79-100) Mean Corpuscular Hemoglobin 35 pg (25-35) Mean Corpuscular Hemoglobin Concent 34 g/dL (31-37) Red Cell Distribution Width 14.8 % (11.5-14.5) Platelet Count 426 x10^3/uL (140-400) Neutrophils (%) (Auto) 78 % (31-73) Lymphocytes (%) (Auto) 14 % (24-48) Monocytes (%) (Auto) 7 % (0-9) Eosinophils (%) (Auto) 0 % (0-3) Basophils (%) (Auto) 0 % (0-3) Neutrophils # (Auto) 8.3 x10^3uL (1.8-7.7) Lymphocytes # (Auto) 1.5 x10^3/uL (1.0-4.8) Monocytes # (Auto) 0.7 x10^3/uL (0.0-1.1) Eosinophils # (Auto) 0.0 x10^3/uL (0.0-0.7) Basophils # (Auto) 0.0 x10^3/uL (0.0-0.2) Sodium Level 138 mmol/L (136-145) Potassium Level 3.7 mmol/L (3.5-5.1) Chloride Level 103 mmol/L (98-107) Carbon Dioxide Level 27 mmol/L (21-32) Anion Gap 8 (6-14) Blood Urea Nitrogen 10 mg/dL (7-20) Creatinine 1.0 mg/dL (0.6-1.0) Estimated GFR (Cockcroft-Gault) 60.2 Glucose Level 376 mg/dL (70-99) Calcium Level 8.7 mg/dL (8.5-10.1) Test 09/09/18 11:41 Glucose (Fingerstick) 328 mg/dL (70-99) Microbiology 09/07/18 Blood Culture - Preliminary, Resulted NO GROWTH AFTER 1 DAY Medications Current Medications Sodium Chloride 1,000 ml @ 1,000 mls/hr 1X ONCE IV Last administered on 09/07/18 15:49; Start 09/07/18 at 15:45; Stop 09/07/18 at 16:44; Status DC Ondansetron HCl (Zofran) 4 mg 1X ONCE IV Last administered on 09/07/18at 15:50; Start 09/07/18 at 15:45; Stop 09/07/18 at 15:46; Status DC Morphine Sulfate (Morphine Sulfate) 4 mg 1X ONCE IV Last administered on 09/07/18 15:49; Start 09/07/18 at 15:45; Stop 09/07/18 at 15:46; Status DC Sodium Chloride 1,000 ml @ 1,000 mls/hr 1X ONCE IV Last administered on 09/07/18at 16:55; Start 09/07/18 at 17:00; Stop 09/07/18 at 17:59; Status DC Potassium Chloride/Water 100 ml @ 100 mls/hr Q1H IV Last administered on 09/07/18at 18:27; Start 09/07/18 at 17:00; Stop 09/07/18 at 19:41; Status DC Cefepime HCl (Maxipime) 2 gm 1X ONCE IVP Last administered on 09/07/18at 18:43; Start 09/07/18 at 18:15; Stop 09/07/18 at 18:16; Status DC Vancomycin HCl 1.75 gm/Sodium Chloride 500 ml @ 250 mls/hr 1X ONCE IV ; Start 09/07/18 at 18:15; Stop 09/07/18 at 20:14; Status UNV Vancomycin HCl 2 gm/Sodium Chloride 500 ml @ 250 mls/hr ONCE ONCE IV Last administered on 09/07/18at 19:21; Start 09/07/18 at 19:00; Stop 09/07/18 at 20:59; Status DC Piperacillin Sod/ Tazobactam Sod 3.375 gm/Sodium Chloride 50 ml @ 100 mls/hr Q6HRS IV Last administered on 09/09/18 04:56; Start 09/08/18 at 00:00 Potassium Chloride (Klor-Con) 40 meq 1X ONCE PO Last administered on 09/07/18 20:03; Start 09/07/18 at 19:45; Stop 09/07/18 at 19:46; Status DC Sodium Chloride 1,000 ml @ 75 mls/hr [id number] IV Last administered on 09/09/18 04:56; Start 09/07/18 at 19:45 Morphine Sulfate (Morphine Sulfate) 2 mg PRN Q2HR PRN IV PAIN Last administered on 09/07/18 23:40; Start 09/07/18 at 19:45 Acetaminophen/ Hydrocodone Bitart (Lortab 10/325) 1 tab PRN Q4HRS PRN PO PAIN Last administered on 09/09/18 08:36; Start 09/07/18 at 19:45 Insulin Human Lispro (HumaLOG) 14 units 1X ONCE SQ Last administered on 09/07/18 20:05; Start 09/07/18 at 19:45; Stop 09/07/18 at 19:47; Status DC Insulin Human Lispro (HumaLOG) 0-7 UNITS TIDWMEALS SQ Last administered on 09/09/18 08:44; Start 09/08/18 at 08:00; Stop 09/09/18 at 09:08; Status DC Dextrose (Dextrose 50%-Water Syringe) 12.5 gm PRN Q15MIN PRN IV SEE COMMENTS; Start 09/07/18 at 19:45 Lorazepam (Ativan) 0.5 mg PRN Q6HRS PRN PO ANXIETY / AGITATION Last administered on 09/09/18 04:57; Start 09/07/18 at 21:45 Nicotine (Nicoderm Cq 21mg) 1 patch DAILY TD Last administered on 09/09/18 08:36; Start 09/08/18 at 09:00 Ondansetron HCl (Zofran) 4 mg PRN Q6HRS PRN IV NAUSEA/VOMITING; Start 09/08/18 at 09:30 Potassium Chloride (Klor-Con) 20 meq [id number] PO Last administered on 09/09/18at 08:36; Start 09/08/18 at 10:00 Insulin Human Lispro (HumaLOG) 12 units 1X ONCE SQ Last administered on 09/08/18at 13:25; Start 09/08/18 at 13:00; Stop 09/08/18 at 13:01; Status DC Insulin Glargine (Lantus) 15 units QHS SQ Last administered on 09/08/18at 20:42; Start 09/08/18 at 21:00; Stop 09/09/18 at 09:08; Status DC Methylprednisolone Sodium Succinate (SOLU-Medrol 40MG VIAL) 40 mg Q12HR IV Last administered on 09/09/18at 08:36; Start 09/08/18 at 13:30 Diphenhydramine HCl (Benadryl) 25 mg PRN Q6HRS PRN PO ITCHING Last administered on 09/08/18at 20:47; Start 09/08/18 at 13:30 Metformin HCl (Glucophage) 1,000 mg BIDWMEALS PO Last administered on 09/09/18at 08:36; Start 09/08/18 at 17:00 Insulin Glargine (Lantus) 25 units QHS SQ ; Start 09/09/18 at 21:00 Glyburide (Diabeta) 5 mg BIDWMEALS PO ; Start 09/09/18 at 10:00 Insulin Human Lispro (HumaLOG) 0-9 UNITS TIDWMEALS SQ ; Start 09/09/18 at 12:00 Dextrose (Dextrose 50%-Water Syringe) 12.5 gm PRN Q15MIN PRN IV SEE COMMENTS; Start 09/09/18 at 09:15 Lisinopril (Prinivil) 10 mg 1X ONCE PO ; Start 09/09/18 at 10:00; Stop 09/09/18 at 10:01; Status DC Lisinopril (Prinivil) 10 mg DAILY PO ; Start 09/10/18 at 09:00 Hydrochlorothiazide (Microzide) 12.5 mg 1X ONCE PO ; Start 09/09/18 at 10:00; Stop 09/09/18 at 10:01; Status DC Hydrochlorothiazide (Microzide) 12.5 mg DAILY PO ; Start 09/10/18 at 09:00 Active Scripts Active Reported Metformin Hcl 1,000 Mg Tablet 1,000 Mg PO BIDWMEALS Vitals/I & O Vital Sign - Last 24 Hours 6/09/08/18 09/08/18 09/08/18 13:15 15:00 17:15 19:25 Temp 98.0 97.8 98.0 97.8 Pulse 72 65 Resp 18 18 B/P (MAP) 115/61 (79) 131/75 (93) Pulse Ox 95 97 95 97 O2 Delivery Room Air Room Air Room Air Room Air 09/08/18 09/08/18 09/08/18 09/09/18 19:46 22:23 23:02 00:02 Temp 97.9 97.9 Pulse 77 Resp 18 20 20 B/P (MAP) 163/92 (115) Pulse Ox 96 O2 Delivery Room Air Room Air Room Air 09/09/18 09/09/18 09/09/18 09/09/18 02:44 07:00 08:00 08:36 Temp 98.0 97.8 98.0 97.8 Pulse 72 55 Resp 18 18 B/P (MAP) 150/82 (104) 143/88 (106) Pulse Ox 95 95 95 O2 Delivery Room Air Room Air Room Air Room Air 09/09/18 09/09/18 09:51 11:00 Temp 97.6 97.6 Pulse 67 Resp 18 B/P (MAP) 171/86 (114) Pulse Ox 95 97 O2 Delivery Room Air Room Air Intake and Output 09/08/18 09/08/18 09/09/18 15:00 23:00 07:00 Intake Total 410 ml 850 ml 1725 ml Output Total 550 ml 300 ml 2900 ml Balance -140 ml 550 ml -1175 ml SAMI COLON MD Sep 09, 2018 11:57
[2018-09-09] MEDS: glyBURIDE 5 MG TABLET PO SCH ×2 (12:41→17:37)
[2018-09-09 15:00] VITALS: BP 144/90
[2018-09-09 19:25] VITALS: BP 135/66
[2018-09-09] MEDS: LACTOBACILLUS RHAMNOSUS GG 1 CAPSULE. PO SCH (21:14)
[2018-09-09] MEDS: INSULIN GLARGINE 300 UNITS/3 ML INSULN.PEN. SQ SCH (21:16)
[2018-09-09 22:40] VITALS: BP 160/83
--- NOTE | 2018-09-10 00:29 | NUR ---
L jaw dressing changed with aseptic technique d/t dressing coming loose and Aquacell Ag falling out, scant drainage noted, pt tolerated well.
[2018-09-10] MEDS: IV NORMAL SALINE 1000ML BAG 1,000 ML IV SCH ×2 (01:05→14:25)
[2018-09-10 03:30] VITALS: BP 155/90
[2018-09-10] MEDS: HYDROcodone/APAP 10/325 1 TAB TABLET PO PRN ×5 (03:42→20:41)
[2018-09-10] MEDS: PIPERACILLIN/TAZOBACTAM 3.375 GM in IV NORMAL SALINE 50ML 50 ML IV SCH ×4 (05:50→23:53)
[2018-09-10 07:21] VITALS: BP 153/77
[2018-09-10] MEDS: metFORMIN 500 MG TABLET PO SCH ×2 (07:34→16:28)
[2018-09-10] MEDS: LACTOBACILLUS RHAMNOSUS GG 1 CAPSULE. PO SCH ×2 (07:34→20:41)
[2018-09-10] MEDS: glyBURIDE 5 MG TABLET PO SCH ×2 (07:35→16:28)
--- NOTE | 2018-09-10 07:35 | PDOC ---
Infectious Disease Note Subjective: Subjective pt cont to have lt jaw swelling and pain ,slightly improved no f/c/n/v cough but chronic ROS: ROS Negative except for above. Vital Signs: Vital Signs Vital Signs Date Time Temp Pulse Resp B/P (MAP) Pulse Ox O2 Delivery O2 Flow Rate FiO2 09/10/18 07:21 97.7 65 18 153/77 (102) 97 Room Air 97.7 Physical Exam: PHYSICAL EXAM GENERAL: Alert, oriented x 3 female, lying in bed comfortably, in no acute distress. HEENT: Normocephalic, atraumatic, anicteric. Left jaw swelling, redness, drainage from an open wound over the left submandibular area, greenish yellow. Poor dentition. NECK: Supple, no JVD. LUNGS: Clear anteriorly. HEART: S1 and S2. No gallops or murmurs. ABDOMEN: Soft, nontender, nondistended. EXTREMITIES: No edema, no cyanosis. NEUROLOGIC: Alert and oriented x 3, grossly nonfocal. DERMATOLOGIC: Warm, dry. No generalized rash except for changes above in the left neck and jaw. PSYCHIATRIC: Cooperative, slightly anxious. Medications: Inpatient Meds: Current Medications Medications (Trade) Dose Ordered Sig/Jose Luis Start Time Stop Time Status Last Admin Dose Admin Acetaminophen/ Hydrocodone Bitart (Lortab 10/325) 1 tab PRN Q4HRS PRN 09/07/18 19:45 09/10/18 03:42 1 TAB Cefepime HCl (Maxipime) 2 gm 1X ONCE 09/07/18 18:15 09/07/18 18:16 DC 09/07/18 18:43 2 GM Dextrose (Dextrose 50%-Water Syringe) 12.5 gm PRN Q15MIN PRN 09/09/18 09:15 Diphenhydramine HCl (Benadryl) 25 mg PRN Q6HRS PRN 09/08/18 13:30 09/08/18 20:47 25 MG Glyburide (Diabeta) 5 mg BIDWMEALS 09/09/18 10:00 09/09/18 17:37 5 MG Hydrochlorothiazide (Microzide) 12.5 mg DAILY 09/10/18 09:00 Insulin Glargine (Lantus) 25 units QHS 09/09/18 21:00 09/09/18 21:16 25 UNITS Insulin Human Lispro (HumaLOG) 0-9 UNITS TIDWMEALS 09/09/18 12:00 09/09/18 17:43 7 UNITS Lactobacillus Rhamnosus (Culturelle) 1 cap BID 09/09/18 21:00 09/09/18 21:14 1 CAP Lisinopril (Prinivil) 10 mg DAILY 09/10/18 09:00 Lorazepam (Ativan) 0.5 mg PRN Q6HRS PRN 09/07/18 21:45 09/09/18 22:46 0.5 MG Metformin HCl (Glucophage) 1,000 mg BIDWMEALS 09/08/18 17:00 09/09/18 17:37 1,000 MG Methylprednisolone Sodium Succinate (SOLU-Medrol 40MG VIAL) 40 mg Q12HR 09/08/18 13:30 09/09/18 21:14 40 MG Morphine Sulfate (Morphine Sulfate) 2 mg PRN Q2HR PRN 09/07/18 19:45 09/07/18 23:40 2 MG Nicotine (Nicoderm Cq 21mg) 1 patch DAILY 09/08/18 09:00 09/09/18 08:36 1 PATCH Ondansetron HCl (Zofran) 4 mg PRN Q6HRS PRN 09/08/18 09:30 Piperacillin Sod/ Tazobactam Sod 3.375 gm/Sodium Chloride 50 ml @ 100 mls/hr Q6HRS 09/08/18 00:00 09/10/18 05:50 100 MLS/HR Potassium Chloride/Water 100 ml @ 100 mls/hr Q1H 09/07/18 17:00 09/07/18 19:41 DC 09/07/18 18:27 100 MLS/HR Potassium Chloride (Klor-Con) 20 meq DAILYWBKFT 09/08/18 10:00 09/09/18 08:36 20 MEQ Sodium Chloride 1,000 ml @ 75 mls/hr [id number] 09/07/18 19:45 09/09/18 04:56 75 MLS/HR Vancomycin HCl 1.75 gm/Sodium Chloride 500 ml @ 250 mls/hr 1X ONCE 09/07/18 18:15 09/07/18 20:14 UNV Vancomycin HCl 2 gm/Sodium Chloride 500 ml @ 250 mls/hr ONCE ONCE 09/07/18 19:00 09/07/18 20:59 DC 09/07/18 19:21 250 MLS/HR Labs: Lab Laboratory Tests Test 09/09/18 09:35 09/09/18 11:41 09/09/18 16:29 09/09/18 21:00 White Blood Count 10.5 x10^3/uL (4.0-11.0) Red Blood Count 3.48 x10^6/uL (3.50-5.40) Hemoglobin 12.0 g/dL (12.0-15.5) Hematocrit 35.0 % (36.0-47.0) Mean Corpuscular Volume 101 fL (79-100) Mean Corpuscular Hemoglobin 35 pg (25-35) Mean Corpuscular Hemoglobin Concent 34 g/dL (31-37) Red Cell Distribution Width 14.8 % (11.5-14.5) Platelet Count 426 x10^3/uL (140-400) Neutrophils (%) (Auto) 78 % (31-73) Lymphocytes (%) (Auto) 14 % (24-48) Monocytes (%) (Auto) 7 % (0-9) Eosinophils (%) (Auto) 0 % (0-3) Basophils (%) (Auto) 0 % (0-3) Neutrophils # (Auto) 8.3 x10^3uL (1.8-7.7) Lymphocytes # (Auto) 1.5 x10^3/uL (1.0-4.8) Monocytes # (Auto) 0.7 x10^3/uL (0.0-1.1) Eosinophils # (Auto) 0.0 x10^3/uL (0.0-0.7) Basophils # (Auto) 0.0 x10^3/uL (0.0-0.2) Sodium Level 138 mmol/L (136-145) Potassium Level 3.7 mmol/L (3.5-5.1) Chloride Level 103 mmol/L (98-107) Carbon Dioxide Level 27 mmol/L (21-32) Anion Gap 8 (6-14) Blood Urea Nitrogen 10 mg/dL (7-20) Creatinine 1.0 mg/dL (0.6-1.0) Estimated GFR (Cockcroft-Gault) 60.2 Glucose Level 376 mg/dL (70-99) Calcium Level 8.7 mg/dL (8.5-10.1) Glucose (Fingerstick) 328 mg/dL (70-99) 261 mg/dL (70-99) 158 mg/dL (70-99) Test 09/10/18 06:56 Glucose (Fingerstick) 232 mg/dL (70-99) Objective: Assessment: 1. Left mandibular fracture, ununited, with nonhealing draining wound with " Plate in place" per pt with likely chronic osteomyelitis with cellulitis 2. History of mandibular fracture 2 years ago status post surgery with foreign body. 3. Status post removal of one plate ,foreign body a year ago at [facility]. 4. Diabetes mellitus, poorly controlled. 5. Lactic acidosis. 6. Leukocytosis. 7. Protein-calorie malnutrition. 8. Dental abscess. Plan: Plan of Care Continue IV Zosyn. Agree with maxillofacial surgeon evaluation,pending at this time Patient will need surgery as antibiotics alone will not be optimal and hardware removal if present also. Follow up lab values. Continue supportive care. Follow up blood cultures. When surgery is done, please send intraoperative cultures including jose e, fungal and afb Discussed with RN. MELANI MA MD Sep 10, 2018 07:35
[2018-09-10] MEDS: INSULIN LISPRO 300 UNITS/3 ML INSULN.PEN. SQ SCH ×3 (07:38→16:51)
[2018-09-10] MEDS: NICOTINE 21MG PATCH. TD SCH (08:53)
[2018-09-10] MEDS: LISINOPRIL 10 MG TABLET PO SCH (08:55)
[2018-09-10] MEDS: hydroCHLOROthiazide 12.5 MG CAPSULE PO SCH (08:55)
[2018-09-10] MEDS: POTASSIUM CHLORIDE 20 MEQ TABLET.ER. PO SCH (08:55)
[2018-09-10] MEDS: methylPREDNISolone SOD SUCC PF 40 MG/ML VIAL. IV SCH ×2 (08:56→20:40)
[2018-09-10 10:45] VITALS: BP 157/91
--- NOTE | 2018-09-10 10:56 | PDOC ---
PROGRESS NOTES Chief Complaint Chief Complaint left jaw infection SIRS no organ dysfunction/sepsis Homeless Critical hypokalemia secondary to poor by mouth-resolved Thrombocytosis in the background of infection Leukocytosis in the background of infection History of Present Illness History of Present Illness Left jaw seems to be getting better Left jaw wound I have personally inspected, looks dry clean, packing is dry No fever, no white count ID note reviewed- But unfortunately maxillofacial surgeon is out of town ID recs [facility] transfer BC neg Gram stain neg BUt anerobic anaerobic will be out later pM - prelim, dw micro PLAN: I am asking to see if administration will provide a cab ride for patient to go to [facility] - she does not want to go to [facility] or [facility] now Wait for Micro to come out later this p.m. Discussed with RN Vitals Vitals Vital Signs Date Time Temp Pulse Resp B/P (MAP) Pulse Ox O2 Delivery O2 Flow Rate FiO2 09/10/18 10:45 97.7 79 18 157/91 (113) 97 Room Air 97.7 Physical Exam Physical Exam GENERAL: Alert, oriented x 3 female, lying in bed comfortably, in no acute distress. HEENT: Normocephalic, atraumatic, anicteric. Left jaw swelling, redness, drainage from an open wound over the left submandibular area, greenish yellow. Poor dentition. NECK: Supple, no JVD. LUNGS: Clear anteriorly. HEART: S1 and S2. No gallops or murmurs. ABDOMEN: Soft, nontender, nondistended. EXTREMITIES: No edema, no cyanosis. NEUROLOGIC: Alert and oriented x 3, grossly nonfocal. DERMATOLOGIC: Warm, dry. No generalized rash except for changes above in the left neck and jaw. PSYCHIATRIC: Cooperative, slightly anxious. General: Alert, Oriented X3, Cooperative, Other (left jaw swelling, poor overall dentition, no open skin lesions or drainage) Heart: Regular rate, Normal S1, Normal S2, No murmurs Lungs: Clear Abdomen: Normal bowel sounds, Soft, No tenderness, No hepatosplenomegaly, No masses Extremities: No clubbing, No cyanosis, No edema, Normal pulses, No tenderness/swelling Skin: No rashes, No breakdown, No significant lesion Labs LABS Laboratory Tests Test 09/09/18 11:41 09/09/18 16:29 09/09/18 21:00 09/10/18 06:56 Glucose (Fingerstick) 328 mg/dL (70-99) 261 mg/dL (70-99) 158 mg/dL (70-99) 232 mg/dL (70-99) Review of Systems Review of Systems A 14 point ROS was completed with the following noted as positive: Other systems reviewed and negative. \CONSTITUTIONAL: No fever or chills EYES: No recent changes SKIN: No rash or itching CARDIOVASCULAR: No chest pain, syncope, palpitations, or edema RESPIRATORY: No SOB or cough GASTROINTESTINAL: No nausea, vomiting or abdominal pain NEUROLOGICAL: No headaches or weakness ENDOCRINE: No cold or heat intolerance GENITOURINARY: No urgency or frequency of urination MUSCULOSKELETAL: No back pain or joint pain LYMPHATICS: No enlarged lymph nodes PSYCHIATRIC: No anxiety or depression Assessment and Plan Assessmemt and Plan Problems Medical Problems: (1) Chronic osteomyelitis of jaw Status: Acute (2) Dental abscess Status: Acute (3) Hypokalemia Status: Acute (4) Infection of mandible Status: Acute (5) Lactic acidosis Status: Acute (6) Protein calorie malnutrition Status: Acute (7) Septic shock Status: Acute (8) Severe sepsis Status: Acute Comment Review of Relevant I have reviewed the following items javi (where applicable) has been applied. Labs Laboratory Tests Test 09/08/18 11:41 09/08/18 16:41 09/08/18 20:38 09/09/18 07:29 Glucose (Fingerstick) 376 mg/dL (70-99) 232 mg/dL (70-99) 303 mg/dL (70-99) 337 mg/dL (70-99) Test 09/09/18 09:35 09/09/18 11:41 09/09/18 16:29 09/09/18 21:00 White Blood Count 10.5 x10^3/uL (4.0-11.0) Red Blood Count 3.48 x10^6/uL (3.50-5.40) Hemoglobin 12.0 g/dL (12.0-15.5) Hematocrit 35.0 % (36.0-47.0) Mean Corpuscular Volume 101 fL (79-100) Mean Corpuscular Hemoglobin 35 pg (25-35) Mean Corpuscular Hemoglobin Concent 34 g/dL (31-37) Red Cell Distribution Width 14.8 % (11.5-14.5) Platelet Count 426 x10^3/uL (140-400) Neutrophils (%) (Auto) 78 % (31-73) Lymphocytes (%) (Auto) 14 % (24-48) Monocytes (%) (Auto) 7 % (0-9) Eosinophils (%) (Auto) 0 % (0-3) Basophils (%) (Auto) 0 % (0-3) Neutrophils # (Auto) 8.3 x10^3uL (1.8-7.7) Lymphocytes # (Auto) 1.5 x10^3/uL (1.0-4.8) Monocytes # (Auto) 0.7 x10^3/uL (0.0-1.1) Eosinophils # (Auto) 0.0 x10^3/uL (0.0-0.7) Basophils # (Auto) 0.0 x10^3/uL (0.0-0.2) Sodium Level 138 mmol/L (136-145) Potassium Level 3.7 mmol/L (3.5-5.1) Chloride Level 103 mmol/L (98-107) Carbon Dioxide Level 27 mmol/L (21-32) Anion Gap 8 (6-14) Blood Urea Nitrogen 10 mg/dL (7-20) Creatinine 1.0 mg/dL (0.6-1.0) Estimated GFR (Cockcroft-Gault) 60.2 Glucose Level 376 mg/dL (70-99) Calcium Level 8.7 mg/dL (8.5-10.1) Glucose (Fingerstick) 328 mg/dL (70-99) 261 mg/dL (70-99) 158 mg/dL (70-99) Test 09/10/18 06:56 Glucose (Fingerstick) 232 mg/dL (70-99) Laboratory Tests Test 09/09/18 11:41 09/09/18 16:29 09/09/18 21:00 09/10/18 06:56 Glucose (Fingerstick) 328 mg/dL (70-99) 261 mg/dL (70-99) 158 mg/dL (70-99) 232 mg/dL (70-99) Microbiology 09/07/18 Blood Culture - Preliminary, Resulted NO GROWTH AFTER 2 DAYS 09/07/18 Anaerobic/Aerobic Culture, Resulted Pending 09/07/18 Anaerobic Culture Result 1 (JUS), Resulted Pending 09/07/18 Aerobic Culture, Resulted Pending 09/07/18 Aerobic Culture Result 1 (JUS), Resulted Pending 09/07/18 Gram Stain - Final, Resulted 09/07/18 Gram Stain Result 1 (JUS) - Final, Resulted 09/07/18 Gram Stain Result 2 (JUS) - Final, Resulted Medications Current Medications Sodium Chloride 1,000 ml @ 1,000 mls/hr 1X ONCE IV Last administered on 09/07/18at 15:49; Start 09/07/18 at 15:45; Stop 09/07/18 at 16:44; Status DC Ondansetron HCl (Zofran) 4 mg 1X ONCE IV Last administered on 09/07/18at 15:50; Start 09/07/18 at 15:45; Stop 09/07/18 at 15:46; Status DC Morphine Sulfate (Morphine Sulfate) 4 mg 1X ONCE IV Last administered on 09/07/18at 15:49; Start 09/07/18 at 15:45; Stop 09/07/18 at 15:46; Status DC Sodium Chloride 1,000 ml @ 1,000 mls/hr 1X ONCE IV Last administered on 09/07/18at 16:55; Start 09/07/18 at 17:00; Stop 09/07/18 at 17:59; Status DC Potassium Chloride/Water 100 ml @ 100 mls/hr Q1H IV Last administered on 09/07/18at 18:27; Start 09/07/18 at 17:00; Stop 09/07/18 at 19:41; Status DC Cefepime HCl (Maxipime) 2 gm 1X ONCE IVP Last administered on 09/07/18at 18:43; Start 09/07/18 at 18:15; Stop 09/07/18 at 18:16; Status DC Vancomycin HCl 1.75 gm/Sodium Chloride 500 ml @ 250 mls/hr 1X ONCE IV ; Start 09/07/18 at 18:15; Stop 09/07/18 at 20:14; Status UNV Vancomycin HCl 2 gm/Sodium Chloride 500 ml @ 250 mls/hr ONCE ONCE IV Last administered on 09/07/18at 19:21; Start 09/07/18 at 19:00; Stop 09/07/18 at 20:59; Status DC Piperacillin Sod/ Tazobactam Sod 3.375 gm/Sodium Chloride 50 ml @ 100 mls/hr Q6HRS IV Last administered on 09/10/18at 05:50; Start 09/08/18 at 00:00 Potassium Chloride (Klor-Con) 40 meq 1X ONCE PO Last administered on 09/07/18at 20:03; Start 09/07/18 at 19:45; Stop 09/07/18 at 19:46; Status DC Sodium Chloride 1,000 ml @ 75 mls/hr [id number] IV Last administered on 09/09/18at 04:56; Start 09/07/18 at 19:45 Morphine Sulfate (Morphine Sulfate) 2 mg PRN Q2HR PRN IV PAIN Last administered on 09/07/18at 23:40; Start 09/07/18 at 19:45 Acetaminophen/ Hydrocodone Bitart (Lortab 10/325) 1 tab PRN Q4HRS PRN PO PAIN Last administered on 09/10/18 07:34; Start 09/07/18 at 19:45 Insulin Human Lispro (HumaLOG) 14 units 1X ONCE SQ Last administered on 09/07/18 20:05; Start 09/07/18 at 19:45; Stop 09/07/18 at 19:47; Status DC Insulin Human Lispro (HumaLOG) 0-7 UNITS TIDWMEALS SQ Last administered on 09/09/18at 08:44; Start 09/08/18 at 08:00; Stop 09/09/18 at 09:08; Status DC Dextrose (Dextrose 50%-Water Syringe) 12.5 gm PRN Q15MIN PRN IV SEE COMMENTS; Start 09/07/18 at 19:45; Stop 09/09/18 at 15:08; Status DC Lorazepam (Ativan) 0.5 mg PRN Q6HRS PRN PO ANXIETY / AGITATION Last administered on 09/09/18at 22:46; Start 09/07/18 at 21:45 Nicotine (Nicoderm Cq 21mg) 1 patch DAILY TD Last administered on 09/10/18at 08:53; Start 09/08/18 at 09:00 Ondansetron HCl (Zofran) 4 mg PRN Q6HRS PRN IV NAUSEA/VOMITING; Start 09/08/18 at 09:30 Potassium Chloride (Klor-Con) 20 meq DAILYWBKFT PO Last administered on 09/10/18 08:55; Start 09/08/18 at 10:00 Insulin Human Lispro (HumaLOG) 12 units 1X ONCE SQ Last administered on 09/08/18 13:25; Start 09/08/18 at 13:00; Stop 09/08/18 at 13:01; Status DC Insulin Glargine (Lantus) 15 units QHS SQ Last administered on 09/08/18 20:42; Start 09/08/18 at 21:00; Stop 09/09/18 at 09:08; Status DC Methylprednisolone Sodium Succinate (SOLU-Medrol 40MG VIAL) 40 mg Q12HR IV Last administered on 09/10/18 08:56; Start 09/08/18 at 13:30 Diphenhydramine HCl (Benadryl) 25 mg PRN Q6HRS PRN PO ITCHING Last administered on 09/08/18 20:47; Start 09/08/18 at 13:30 Metformin HCl (Glucophage) 1,000 mg BIDWMEALS PO Last administered on 09/10/18 07:34; Start 09/08/18 at 17:00 Insulin Glargine (Lantus) 25 units QHS SQ Last administered on 09/09/18 21:16; Start 09/09/18 at 21:00 Glyburide (Diabeta) 5 mg BIDWMEALS PO Last administered on 09/10/18 07:35; Start 09/09/18 at 10:00 Insulin Human Lispro (HumaLOG) 0-9 UNITS TIDWMEALS SQ Last administered on 09/10/18 07:38; Start 09/09/18 at 12:00 Dextrose (Dextrose 50%-Water Syringe) 12.5 gm PRN Q15MIN PRN IV SEE COMMENTS; Start 09/09/18 at 09:15 Lisinopril (Prinivil) 10 mg 1X ONCE PO Last administered on 09/09/18at 12:40; Start 09/09/18 at 10:00; Stop 09/09/18 at 10:01; Status DC Lisinopril (Prinivil) 10 mg DAILY PO Last administered on 6/19/19at 08:55; Start 09/10/18 at 09:00 Hydrochlorothiazide (Microzide) 12.5 mg 1X ONCE PO Last administered on 09/09/18at 12:41; Start 09/09/18 at 10:00; Stop 09/09/18 at 10:01; Status DC Hydrochlorothiazide (Microzide) 12.5 mg DAILY PO Last administered on 09/10/18at 08:55; Start 09/10/18 at 09:00 Lactobacillus Rhamnosus (Culturelle) 1 cap BID PO Last administered on 09/10/18at 07:34; Start 09/09/18 at 21:00 Active Scripts Active Reported Metformin Hcl 1,000 Mg Tablet 1,000 Mg PO BIDWMEALS Vitals/I & O Vital Sign - Last 24 Hours 09/09/18 09/09/18 09/09/18 09/09/18 11:00 12:40 12:41 15:00 Temp 97.6 97.6 97.6 97.6 Pulse 67 67 75 Resp 18 18 B/P (MAP) 171/86 (114) 171/86 144/90 (108) Pulse Ox 97 97 98 O2 Delivery Room Air Room Air Room Air 09/09/18 09/09/18 09/09/18 09/09/18 17:45 19:25 20:00 22:40 Temp 97.7 97.8 97.7 97.8 Pulse 80 71 Resp 20 18 B/P (MAP) 135/66 (89) 160/83 (108) Pulse Ox 97 96 O2 Delivery Room Air Room Air Room Air Room Air 09/09/18 09/10/18 09/10/18 09/10/18 22:47 03:30 03:42 04:45 Temp 97.6 97.6 Pulse 69 Resp 20 18 20 18 B/P (MAP) 155/90 (111) Pulse Ox 97 97 97 97 O2 Delivery Room Air Room Air Room Air 09/10/18 09/10/18 09/10/18 09/10/18 07:21 07:34 07:50 08:34 Temp 97.7 97.7 Pulse 65 Resp 18 B/P (MAP) 153/77 (102) Pulse Ox 97 O2 Delivery Room Air Room Air Room Air Room Air 09/10/18 09/10/18 08:55 10:45 Temp 97.7 97.7 Pulse 71 79 Resp 18 B/P (MAP) 144/83 157/91 (113) Pulse Ox 97 O2 Delivery Room Air Intake and Output 09/09/18 09/09/18 09/10/18 15:00 23:00 07:00 Intake Total 50 ml 50 ml 760 ml Output Total 800 ml Balance 50 ml 50 ml -40 ml SAMI COLON MD Sep 10, 2018 10:56
[2018-09-10] MEDS ORDERED: LISI10TA2 PO (10:58)
[2018-09-10] MEDS ORDERED: POTA20TA4 PO (10:58)
[2018-09-10] MEDS ORDERED: HYDR-2769 PO (10:58)
[2018-09-10] MEDS ORDERED: DIPH25CA58 PO (10:58)
[2018-09-10] MEDS ORDERED: GLYB5TAB3 PO (10:58)
[2018-09-10] MEDS ORDERED: INSU100I13 SQ (10:58)
[2018-09-10] MEDS ORDERED: HYDR12.575 PO (10:58)
[2018-09-10 15:00] VITALS: BP 156/76
[2018-09-10 19:40] VITALS: BP 147/83
[2018-09-10] MEDS: LORazepam 0.5 MG TABLET PO PRN (20:40)
[2018-09-10] MEDS: INSULIN GLARGINE 300 UNITS/3 ML INSULN.PEN. SQ SCH (20:44)
[2018-09-10 23:50] VITALS: BP 159/92
[2018-09-11] MEDS: HYDROcodone/APAP 10/325 1 TAB TABLET PO PRN ×2 (01:14→06:03)
[2018-09-11 03:30] VITALS: BP 155/69
[2018-09-11] MEDS: IV NORMAL SALINE 1000ML BAG 1,000 ML IV SCH (03:45)
--- NOTE | 2018-09-11 04:07 | NUR ---
L jaw dressing changed with aseptic technique after patient showered, no drainage noted, pt tolerated well.
[2018-09-11] MEDS: PIPERACILLIN/TAZOBACTAM 3.375 GM in IV NORMAL SALINE 50ML 50 ML IV SCH (05:53)
--- NOTE | 2018-09-11 07:02 | PDOC ---
Infectious Disease Note Subjective: Subjective pt cont to have lt jaw swelling and pain ,slightly improved no f/c/n/v cough but chronic asking for dc home as oral surgeon is not available at this facility we discussed about transfer to another facility ,pt is refusing she plans to f/u with the oral surgeon who did her surgery 2 yrs ago at [facility] ROS: ROS Negative except for above. Vital Signs: Vital Signs Vital Signs Date Time Temp Pulse Resp B/P (MAP) Pulse Ox O2 Delivery O2 Flow Rate FiO2 09/11/18 06:03 16 97 Room Air 09/11/18 03:30 97.9 53 155/69 (97) 97.9 Physical Exam: PHYSICAL EXAM GENERAL: Alert, oriented x 3 female, lying in bed comfortably, in no acute distress. HEENT: Normocephalic, atraumatic, anicteric. Left jaw swelling, redness, drainage from an open wound over the left submandibular area, greenish yellow. Poor dentition. NECK: Supple, no JVD. LUNGS: Clear anteriorly. HEART: S1 and S2. No gallops or murmurs. ABDOMEN: Soft, nontender, nondistended. EXTREMITIES: No edema, no cyanosis. NEUROLOGIC: Alert and oriented x 3, grossly nonfocal. DERMATOLOGIC: Warm, dry. No generalized rash except for changes above in the left neck and jaw. PSYCHIATRIC: Cooperative, slightly anxious. Medications: Inpatient Meds: Current Medications Medications (Trade) Dose Ordered Sig/Jose Luis Start Time Stop Time Status Last Admin Dose Admin Acetaminophen/ Hydrocodone Bitart (Lortab 10/325) 1 tab PRN Q4HRS PRN 09/07/18 19:45 09/11/18 06:03 1 TAB Cefepime HCl (Maxipime) 2 gm 1X ONCE 09/07/18 18:15 09/07/18 18:16 DC 09/07/18 18:43 2 GM Dextrose (Dextrose 50%-Water Syringe) 12.5 gm PRN Q15MIN PRN 09/09/18 09:15 Diphenhydramine HCl (Benadryl) 25 mg PRN Q6HRS PRN 09/08/18 13:30 09/08/18 20:47 25 MG Glyburide (Diabeta) 5 mg BIDWMEALS 09/09/18 10:00 09/10/18 16:28 5 MG Hydrochlorothiazide (Microzide) 12.5 mg DAILY 09/10/18 09:00 09/10/18 08:55 12.5 MG Insulin Glargine (Lantus) 25 units QHS 09/09/18 21:00 09/10/18 20:44 25 UNITS Insulin Human Lispro (HumaLOG) 0-9 UNITS TIDWMEALS 09/09/18 12:00 09/10/18 16:51 9 UNITS Lactobacillus Rhamnosus (Culturelle) 1 cap BID 09/09/18 21:00 09/10/18 20:41 1 CAP Lisinopril (Prinivil) 10 mg DAILY 09/10/18 09:00 09/10/18 08:55 10 MG Lorazepam (Ativan) 0.5 mg PRN Q6HRS PRN 09/07/18 21:45 09/10/18 20:40 0.5 MG Metformin HCl (Glucophage) 1,000 mg BIDWMEALS 09/08/18 17:00 09/10/18 16:28 1,000 MG Methylprednisolone Sodium Succinate (SOLU-Medrol 40MG VIAL) 40 mg Q12HR 09/08/18 13:30 09/10/18 20:40 40 MG Morphine Sulfate (Morphine Sulfate) 2 mg PRN Q2HR PRN 09/07/18 19:45 09/07/18 23:40 2 MG Nicotine (Nicoderm Cq 21mg) 1 patch DAILY 09/08/18 09:00 09/10/18 08:53 1 PATCH Ondansetron HCl (Zofran) 4 mg PRN Q6HRS PRN 09/08/18 09:30 Piperacillin Sod/ Tazobactam Sod 3.375 gm/Sodium Chloride 50 ml @ 100 mls/hr Q6HRS 09/08/18 00:00 09/11/18 05:53 100 MLS/HR Potassium Chloride/Water 100 ml @ 100 mls/hr Q1H 09/07/18 17:00 09/07/18 19:41 DC 09/07/18 18:27 100 MLS/HR Potassium Chloride (Klor-Con) 20 meq DAILYWBKFT 09/08/18 10:00 09/10/18 08:55 20 MEQ Sodium Chloride 1,000 ml @ 75 mls/hr [id number] 09/07/18 19:45 09/10/18 14:25 75 MLS/HR Vancomycin HCl 1.75 gm/Sodium Chloride 500 ml @ 250 mls/hr 1X ONCE 09/07/18 18:15 09/07/18 20:14 UNV Vancomycin HCl 2 gm/Sodium Chloride 500 ml @ 250 mls/hr ONCE ONCE 09/07/18 19:00 09/07/18 20:59 DC 09/07/18 19:21 250 MLS/HR Labs: Lab Laboratory Tests Test 09/10/18 11:10 09/10/18 16:43 09/10/18 20:57 Glucose (Fingerstick) 220 mg/dL (70-99) 350 mg/dL (70-99) 142 mg/dL (70-99) Micro RUN DATE: 09/10/18 PAGE 1 RUN TIME: 5031 [facility] [address] [place] [address] Nazario Robin M.D., [employer] Chief Creative Officer PATIENT: STAS GONZALES ACCT: [id number] LOC: [address] [place] [address] U: [id number] AGE/SX: 43/F ROOM: 200 RE09/07/[address]: KAYE RAMSEY III DO : 1975 BED: 1 DIS: STATUS: ADM IN TLOC: SPEC #: [id number] PIOTR: 09/07/18 STATUS: RES REQ #: [id number] RECD: 09/07/[address] [facility] [address]: OPAL QUILES MD SOURCE: JAW ENTR: 09/07/[address]: IVORY SOSA DMD [facility]: KAYE GUERRERO III DO NO PCP ORDERED: ANAER/AEROB/GS ----- Procedure Result ANAEROBIC-AEROBIC CULTURE PENDING ANAEROBIC RES 1 PENDING AEROBIC CULT Preliminary Preliminary report AEROBIC RES 1 Preliminary Comment No growth in 36 - 48 hours. GRAM STAIN Final Final report GRAM STAIN RES 1 Final Comment No white blood cells seen. GRAM STAIN RES 2 Final No organisms seen Performed at: - [address], [place], [place] [id number] Linux Kernel Engineer: NEHA Capps MD, Phone: [phone] Objective: Assessment: 1. Left mandibular fracture, ununited, with nonhealing draining wound with " Plate in place" per pt with likely chronic osteomyelitis with cellulitis 2. History of mandibular fracture 2 years ago status post surgery with foreign body. 3. Status post removal of one plate ,foreign body a year ago at [facility]. 4. Diabetes mellitus, poorly controlled. 5. Lactic acidosis. 6. Leukocytosis. 7. Protein-calorie malnutrition. 8. Dental abscess. Plan: Plan of Care Pt needs surgery maxillofacial surgeon evaluation,pending at this time, service is not available per Dr Yancey antibiotics alone will not be optimal Transfer to another facilty with maxillofacial surgery ,d/w Dr Yancey Pt is refusing for transfer,wants to be dc home will follow up on her own as outpt either at or OM surgeon at [facility] Pt can progess from her current infection , we discussed IV abx for discharge pending surgery evaluation, refusing she is requesing oral abx for now Pros and cons discussed at length Pt verbalizes understanding augmentin for 7days ,script given pain tx per primary Discussed with RN. MELANI MA MD Sep 11, 2018 07:02
--- NOTE | 2018-09-11 07:32 | NUR ---
[facility] nurse discharge planner nurse responsible to monitor telemetry
[2018-09-11 07:44] VITALS: BP 184/90
[2018-09-11] MEDS: MORPHINE SULFATE 2 MG/ML VIAL. IV PRN (07:49)
[2018-09-11] MEDS: metFORMIN 500 MG TABLET PO SCH (07:50)
[2018-09-11] MEDS: POTASSIUM CHLORIDE 20 MEQ TABLET.ER. PO SCH (07:50)
[2018-09-11] MEDS: glyBURIDE 5 MG TABLET PO SCH (07:50)
[2018-09-11] MEDS: INSULIN LISPRO 300 UNITS/3 ML INSULN.PEN. SQ SCH (07:51)
--- NOTE | 2018-09-11 07:54 | NUR ---
Spoke with patient again after being seen by Dr. Carroll, continues to refuse transfer to [facility] for farther oral dental surgical care, states she will follow up with Dr. Jacobo at [facility] who did original dental surgery, she will attempt to call later, has phone # at bedside.
[2018-09-11 08:55] VITALS: BP 104/67
[2018-09-11 08:56] VITALS: BP 104/67
[2018-09-11] MEDS: hydroCHLOROthiazide 12.5 MG CAPSULE PO SCH (08:56)
[2018-09-11] MEDS: LACTOBACILLUS RHAMNOSUS GG 1 CAPSULE. PO SCH (08:56)
[2018-09-11] MEDS: LISINOPRIL 10 MG TABLET PO SCH (08:56)
[2018-09-11] MEDS: NICOTINE 21MG PATCH. TD SCH (08:57)
[2018-09-11] MEDS: methylPREDNISolone SOD SUCC PF 40 MG/ML VIAL. IV SCH (08:59)
--- NOTE | 2018-09-11 09:37 | NUR ---
Julianne did make appointment with Dr. Jacobo for September at 10:30am [phone] address [id number], will make a note in discharge paperwork
--- NOTE | 2018-09-11 10:13 | PDOC3 ---
Discharge Summary Visit Information Date of Admission: Sep 07, 2018 Date of Discharge: Sep 11, 2018 Admitting Diagnosis Comment: left jaw infection SIRS no organ dysfunction/sepsis Homeless Critical hypokalemia secondary to poor by mouth-resolved Thrombocytosis in the background of infection Leukocytosis in the background of infection Final Diagnosis Problems Medical Problems: (1) Chronic osteomyelitis of jaw Status: Acute (2) Dental abscess Status: Acute (3) Fracture of unspecified part of body of left mandible, subsequent encounter for fracture with delayed healing Status: Acute (4) Fracture of unspecified part of body of left mandible, subsequent encounter for fracture with nonunion Status: Acute (5) Hypokalemia Status: Acute (6) Infection of mandible Status: Acute (7) Lactic acidosis Status: Acute (8) Protein calorie malnutrition Status: Acute (9) Septic shock Status: Acute (10) Severe sepsis Status: Acute Brief Hospital Course Allergies Allergies Coded Allergies Type Severity Reaction Last Updated Verified No Known Drug Allergies 07/30/16 No Vital Signs Vital Signs Date Time Temp Pulse Resp B/P (MAP) Pulse Ox O2 Delivery O2 Flow Rate FiO2 09/11/18 08:56 72 104/67 09/11/18 07:50 Room Air 09/11/18 07:44 97.8 18 98 97.8 Lab Results Laboratory Tests Test 09/09/18 11:41 09/09/18 16:29 09/09/18 21:00 09/10/18 06:56 Glucose (Fingerstick) 328 mg/dL (70-99) 261 mg/dL (70-99) 158 mg/dL (70-99) 232 mg/dL (70-99) Test 09/10/18 11:10 09/10/18 16:43 09/10/18 20:57 09/11/18 07:16 Glucose (Fingerstick) 220 mg/dL (70-99) 350 mg/dL (70-99) 142 mg/dL (70-99) 143 mg/dL (70-99) Laboratory Tests Test 09/10/18 11:10 09/10/18 16:43 09/10/18 20:57 09/11/18 07:16 Glucose (Fingerstick) 220 mg/dL (70-99) 350 mg/dL (70-99) 142 mg/dL (70-99) 143 mg/dL (70-99) Brief Hospital Course Ms. Benítez is a 43 old white female, homeless, admitted for left jaw infection. She had a previous surgery in that area in another institution [facility]? [place] with ID. ID recommended [facility] facial surgeon - but was out of town We have been managing with IV antibiotics and so far blood cultures and Gram stain and aerobic are negative. Patient wants to go home will go home with the mom. Lavinia written on chart. Some pain medicines. To follow-up with [facility] where she had her surgeries Consults performed by ID Procedure is performed none Time discharging less than 30 minutes Discharge Information Condition at Discharge: Improved, Stable Disposition/Orders: D/C to Home Scheduled Glyburide (Glyburide) 5 Mg Tablet, 5 MG PO BIDWMEALS for dm, #60 Prescribed by: SAMI COLON on 09/10/18 1058 Hydrochlorothiazide (Hydrochlorothiazide Capsule ) 12.5 Mg Capsule, 12.5 MG PO DAILY for htn, #30 Prescribed by: SAMI COLON on 09/10/18 1058 Insulin Glargine,Hum.rec.anlog (Lantus Solostar) 100 Unit/1 Ml Insuln.pen, 25 UNITS SQ QHS for dm for 30 Days Prescribed by: SAMI COLON on 09/10/18 1058 Lisinopril (Lisinopril) 10 Mg Tablet, 10 MG PO DAILY for htn, #60 Prescribed by: SAMI COLON on 09/10/18 1058 Metformin Hcl (Metformin Hcl) 1,000 Mg Tablet, 1,000 MG PO BIDWMEALS for diabetes, (Reported) Entered as Reported by: Faisal Garcia on 09/07/182010 Last Action: Converted on 09/08/18 1658 by SAMI COLON Potassium Chloride (Klor-Con M20) 20 Meq Tab.er.prt, 20 MEQ PO DAILYWBKFT for hctz use, #30 Prescribed by: SAMI COLON on 09/10/18 1058 Scheduled PRN Diphenhydramine Hcl (Benadryl) 25 Mg Capsule, 25 MG PO PRN Q6HRS PRN for ITCHING for 7 Days Prescribed by: SAMI COLON on 09/10/18 1058 Hydrocodone Bit/Acetaminophen (Hydrocodone-Apap 10-325 ) 1 Tab Tablet, 1 TAB PO PRN Q4HRS PRN for PAIN, #20 Prescribed by: SAMI COLON on 09/10/18 1058 SAMI COLON MD Sep 11, 2018 10:13
--- NOTE | 2018-09-11 10:49 | NUR ---
SS following up with discharge planning. SS met with pt and pt reported that her mother is coming to the hospital to pick her up. Pt declining homeless care home.
--- NOTE | 2018-09-11 11:08 | NUR ---
Discharged to home, accompanied by mother, see instructions sheet for details, given dressing supplies for jaw, encouraged to keep appointment with oral surgeon & even call early next week for earlier appointment
== END 2018-09-11 10:55 | disposition home or self-care (01) | DRG 871 ==
LOC: ER 15:07 → 2 NORTH 16:45
PROVIDERS: ADMIT Internal Medicine; ATTEND Internal Medicine
DX: A41.9 Sepsis, unspecified organism (principal); E43 Unspecified severe protein-calorie malnutrition; R65.21 Severe sepsis with septic shock; S02.602A Fracture of unspecified part of body of left mandible, initial encounter for closed fracture; L03.90 Cellulitis, unspecified; M86.68 Other chronic osteomyelitis, other site; E11.65 Type 2 diabetes mellitus with hyperglycemia; E11.69 Type 2 diabetes mellitus with other specified complication; E87.6 Hypokalemia; F12.90 Cannabis use, unspecified, uncomplicated; F32.9 Major depressive disorder, single episode, unspecified; X58.XXXD Exposure to other specified factors, subsequent encounter; K04.7 Periapical abscess without sinus; I10 Essential (primary) hypertension; M27.2 Inflammatory conditions of jaws; Z79.4 Long term (current) use of insulin; Z79.899 Other long term (current) drug therapy; Z83.3 Family history of diabetes mellitus; Z59.0 Homelessness; Z98.51 Tubal ligation status
CPT/HCPCS: 36415; 70486; 80048; 80053; 82962; 83036; 83605; 83735; 85025; 85651; 87040; 87071; 87075; 93005; 96361; 96374; 96375; J0692; J1815; J2270; J2405; J2543; J2920; J3370; J3480; J7030; J7040; Q0163; 99285-25

== ENCOUNTER 2019-01-26 00:41 | Emergency (ER) | payer MEDICAID, OTHER ==
[~2019-01-26] VITALS: Ht 167.6 cm; Wt 68.0 kg
[~2019-01-26 00:41] MED LIST: DIPH25CA58 PO; GLYB5TAB3 PO; HYDR-2769 PO; HYDR12.575 PO; INSU100I13 SQ; LISI10TA2 PO; METF10007 PO; POTA20TA4 PO
[2019-01-26] MEDS ORDERED: ZIPRASIDONE IM 20 MG VIAL. IM ONE ×2 (01:06→01:15)
--- NOTE | 2019-01-26 01:24 | PHYS DOC ---
Past Medical History Past Medical History: No Pertinent History, Diabetes-Type II Past Surgical History: No Surgical History, Tubal ligation Additional Past Surgical Histo: JAW SX, R ARM SKIN GRAFT Alcohol Use: Occasionally Drug Use: Marijuana Adult General Chief Complaint Chief Complaint: MEDICATION REFILL HPI HPI 43-year-old female presents to emergency department after referral from [facility]. Patient has a history of alcohol and would like detox. She was evaluated per [facility] and accepted however needed a prescription for lithium as well as metformin. She has a history of diabetes and the purpose of lithium is for the taper at [facility]. Upon patient arrival she was very paranoid and would not sit in the room would not allow her vital signs to be taken and subsequently required security as well as Geodon 20 mg IM. Patient will need to be reassessed given her paranoia. Review of Systems Review of Systems ROS unobtainable 2/2 patient's paranoia/current mental state All other systems were reviewed and found to be within normal limits, except as documented in this note. Current Medications Current Medications Current Medications Medications (Trade) Dose Ordered Sig/Jose Luis Start Time Stop Time Status Last Admin Dose Admin Ziprasidone (Geodon Im) 20 mg 1X ONCE 01/26/19 01:15 01/26/19 01:16 DC 01/26/19 01:14 20 MG Allergies Allergies Allergies Coded Allergies Type Severity Reaction Last Updated Verified No Known Drug Allergies 07/30/16 No Physical Exam Physical Exam Constitutional: Disheveled, no acute distress, non-toxic appearance. [] HENT: Normocephalic, atraumatic, bilateral external ears normal, oropharynx moist, no oral exudates, nose normal. [] Eyes: PERRLA, EOMI, conjunctiva normal, no discharge. [] Cardiovascular:Heart rate regular rhythm, no murmur [] Lungs & Thorax: Bilateral breath sounds clear to auscultation [] Abdomen: Bowel sounds normal, soft, no tenderness, no masses, no pulsatile masses. [] Skin: Warm, dry, no erythema, no rash. [] Extremities: No tenderness, no edema. [] Neurologic: Alert and oriented X 3, no focal deficits noted. [] Psychologic: Paranoid, judgement abnormal. [] Current Patient Data Vital Signs Vital Signs Date Time Temp Pulse Resp B/P (MAP) Pulse Ox O2 Delivery O2 Flow Rate FiO2 01/26/19 03:45 90 18 123/70 (87) 98 Room Air Lab Values Laboratory Tests Test 01/26/19 01:35 01/26/19 02:41 White Blood Count 8.0 x10^3/uL (4.0-11.0) Red Blood Count 4.15 x10^6/uL (3.50-5.40) Hemoglobin 14.0 g/dL (12.0-15.5) Hematocrit 39.5 % (36.0-47.0) Mean Corpuscular Volume 95 fL (79-100) Mean Corpuscular Hemoglobin 34 pg (25-35) Mean Corpuscular Hemoglobin Concent 35 g/dL (31-37) Red Cell Distribution Width 13.3 % (11.5-14.5) Platelet Count 225 x10^3/uL (140-400) Neutrophils (%) (Auto) 61 % (31-73) Lymphocytes (%) (Auto) 26 % (24-48) Monocytes (%) (Auto) 13 % (0-9) H Eosinophils (%) (Auto) 0 % (0-3) Basophils (%) (Auto) 1 % (0-3) Neutrophils # (Auto) 4.9 x10^3/uL (1.8-7.7) Lymphocytes # (Auto) 2.0 x10^3/uL (1.0-4.8) Monocytes # (Auto) 1.0 x10^3/uL (0.0-1.1) Eosinophils # (Auto) 0.0 x10^3/uL (0.0-0.7) Basophils # (Auto) 0.0 x10^3/uL (0.0-0.2) Urine Collection Type Unknown Urine Color Catarina Urine Clarity Clear Urine pH 5.0 Urine Specific [place] 1.025 Urine Protein 100 mg/dL (NEG-TRACE) Urine Glucose (UA) 100 mg/dL (NEG) Urine Ketones (Stick) Trace mg/dL (NEG) Urine Blood Small (NEG) Urine Nitrite Negative (NEG) Urine Bilirubin Small (NEG) Urine Urobilinogen Dipstick 1.0 mg/dL (0.2 mg/dL) Urine Leukocyte Esterase Trace (NEG) Urine RBC 3-5 /HPF (0-2) Urine WBC 5-10 /HPF (0-4) Urine Squamous Epithelial Cells Mod /LPF Urine Bacteria Many /HPF (0-FEW) Urine Hyaline Casts Moderate /HPF Urine Mucus Marked /LPF Sodium Level 131 mmol/L (136-145) L Potassium Level 3.8 mmol/L (3.5-5.1) Chloride Level 92 mmol/L (98-107) L Carbon Dioxide Level 21 mmol/L (21-32) Anion Gap 18 (6-14) H Blood Urea Nitrogen 20 mg/dL (7-20) Creatinine 1.0 mg/dL (0.6-1.0) Estimated GFR (Cockcroft-Gault) 60.2 BUN/Creatinine Ratio 20 (6-20) Glucose Level 195 mg/dL (70-99) H Calcium Level 9.4 mg/dL (8.5-10.1) Total Bilirubin 1.8 mg/dL (0.2-1.0) H Aspartate Amino Transferase (AST) 49 U/L (15-37) H Alanine Aminotransferase (ALT) 32 U/L (14-59) Alkaline Phosphatase 128 U/L (46-116) H Total Protein 9.2 g/dL (6.4-8.2) H Albumin 4.3 g/dL (3.4-5.0) Albumin/Globulin Ratio 0.9 (1.0-1.7) L Salicylates Level 4.8 mg/dL (2.8-20.0) Salicylate Last Dose Date Unk Salicylate Last Dose Time Unk Acetaminophen Level < 2 mcg/ml (10-30) L Acetaminophen Last Dose Date Unk Acetaminophen Last Dose Time Unk Ethyl Alcohol Level < 10 mg/dL (0-10) POC Urine HCG, Qualitative Hcg negative (Negative) Laboratory Tests 01/26/19 01:35 Laboratory Tests 01/26/19 01:35 EKG EKG [] Radiology/Procedures Radiology/Procedures [] Course & Med Decision Making Course & Med Decision Making Pertinent Labs and Imaging studies reviewed. (See chart for details) []43-year-old female presents to emergency department after referral from [facility]. Patient has a history of alcohol and would like detox. She was evaluated per [facility] and accepted however needed a prescription for lithium as well as metformin. She has a history of diabetes and the purpose of lithium is for the taper at [facility]. Upon patient arrival she was very paranoid and would not sit in the room would not allow her vital signs to be taken and subsequently required security as well as Geodon 20 mg IM. Patient will need to be reassessed given her paranoia. Labs reviewed Patient received Geodon as above for paranoia - resting comfortably Patient planned for outpatient [facility] Substance Abuse Treatment [id number] patient more awake and will plan for dc to rehab via EMS Librium taper faxed to rehab Bailey Disclaimer Bailey Disclaimer This electronic medical record was generated, in whole or in part, using a voice recognition dictation system. Departure Departure Impression: Primary Impression: EtOH dependence Additional Impression: Paranoia Disposition: 05 TRANSFER OTHER Condition: IMPROVED Referrals: GISSELL ROMERO MD (PCP) Patient Instructions: Alcohol Withdrawal Additional Instructions: Recommend follow up with PCP 3 - 5 days Return to the ER with worsening symptoms, intractable pain, fever, altered mental status Tylenol/Motrin as needed for pain Librium rx provided for detox - faxed to [facility] Rehab Problem Qualifiers Primary Impression: EtOH dependence Substance use status: unspecified alcohol-induced disorder Qualified Codes: F10.29 - Alcohol dependence with unspecified alcohol-induced disorder DIONICIO HODGE MD Jan 26, 2019 01:24
[2019-01-26 01:44] LABS: BASO % 1 % (0-3); EOS % 0 % (0-3); HEMATOCRIT 39.5 % (36.0-47.0); LYMPH % 26 % (24-48); MEAN CORPUSCULAR HEMOGLOBIN 34 pg (25-35); MEAN CORPUSCULAR HGB CONC 35 g/dL (31-37); MEAN CORPUSCULAR VOLUME 95 fL (79-100); MONO % 13 % (0-9); NEUT # 4.9 x10^3/uL (1.8-7.7); NEUT % 61 % (31-73); PLATELET COUNT 225 x10^3/uL (140-400); RED BLOOD COUNT 4.15 x10^6/uL (3.50-5.40); RED CELL DISTRIBUTION WIDTH 13.3 % (11.5-14.5)
[2019-01-26 01:46] LABS: BILIRUBIN,URINE SMALL (NEG); CLARITY,URINE CLEAR; COLOR,URINE AMBER; NITRITE,URINE NEGATIVE (NEG); PROTEIN,URINE 100 mg/dL (NEG-TRACE)
[2019-01-26 01:51] LABS: CALCIUM 9.4 mg/dL (8.5-10.1); GFR 60.2; POTASSIUM 3.8 mmol/L (3.5-5.1)
[2019-01-26 01:56] LABS: ACETAMIN < 2 mcg/ml (10-30); ETHANOL < 10 mg/dL (0-10); SALIC 4.8 mg/dL (2.8-20.0)
[2019-01-26 01:59] LABS: ALBUMIN 4.3 g/dL (3.4-5.0); ALBUMIN/GLOBULIN RATIO 0.9 (1.0-1.7); BACTERIA,URINE MANY /HPF (0-FEW); HYALINE CASTS, URINE MODERATE /HPF; TOTAL BILIRUBIN 1.8 mg/dL (0.2-1.0); TOTAL PROTEIN 9.2 g/dL (6.4-8.2)
[2019-01-26 02:00] LABS: SQUAMOUS EPITHELIAL CELL,UR MOD /LPF
[2019-01-26 04:15] VITALS: BP 111/60
== END 2019-01-26 05:15 | disposition short-term general hospital (02) ==
LOC: ER 00:41
DX: F10.29 Alcohol dependence with unspecified alcohol-induced disorder (principal); F22 Delusional disorders; E11.9 Type 2 diabetes mellitus without complications
CPT/HCPCS: 36415; 80053; 80329; 81001; 81025; 85025; 87086; 96372; 99285; G0480; J3486

== ENCOUNTER 2021-04-18 02:57 | Emergency (ER) | payer OTHER, MEDICAID ==
[~2021-04-18] VITALS: Ht 167.6 cm; Wt 81.1 kg
[~2021-04-18 02:57] MED LIST changes: +LISI10TA16 PO; -LISI10TA2 PO; +POTA-121 PO; -POTA20TA4 PO
--- NOTE | 2021-04-18 03:48 | PHYS DOC ---
Past Medical History Past Medical History: No Pertinent History, Diabetes-Type II Past Surgical History: Tubal ligation, Other Additional Past Surgical Histo: JAW SX, R ARM SKIN GRAFT Smoking Status: Current Every Day Smoker Alcohol Use: Heavy Drug Use: Marijuana General Adult EDM: Chief Complaint: ALCOHOL INTOXICATION HPI: HPI: Patient is a 46 year old F who presents with alcohol intoxication. Pt claims that she drinks approximately 1L of vodka daily. She would like to go to rehab, has been to [facility] in the past, but wants to go somewhere different this time. She reports nausea, and vomited once today. Denies bloody emesis. Reports a cough productive of thick yellow sputum, denies fevers, chills, headache, diarrhea. Denies tremor, or loss of consciousness. At time of interview, no apparent signs of withdrawl. Patient arrived via EMS. She ambulated into the ER with a steady gait. Patient denied any homicidal or suicidal ideations. Review of Systems: Review of Systems: Review of systems: Constitutional symptoms- No fever, no chills. Eyes- No Discharge, No Visual Loss Respiratory symptoms- No shortness of breath, No wheezing, No Dyspnea on Exertion Cardiovascular Systems; No chest pain, No Palpitations, No syncope Gastrointestinal symptoms: NO abdominal pain, positive nausea, positive vomiting, no diarrhea. Genitourinary symptoms: No dysuria. Musculoskeletal symptoms: No back pain No extremity pain. NEUROLOGICAL Symptoms: No headache, no generalized weakness; No focal Weakness Skin: No rash. Constitutional: Denies fever or chills. Heart Score: C/O Chest Pain: N/A Risk Factors: Risk Factors: DM, Current or recent (<one month) smoker, HTN, HLP, family history of CAD, obesity. Risk Scores: Score 0 - 3: 2.5% MACE over next 6 weeks - Discharge Home Score 4 - 6: 20.3% MACE over next 6 weeks - Admit for Clinical Observation Score 7 - 10: 72.7% MACE over next 6 weeks - Early Invasive Strategies Allergies: Allergies: Allergies Coded Allergies Type Severity Reaction Last Updated Verified No Known Drug Allergies 04/18/21 No Physical Exam: PE: General: altered, no acute distress. Skin: warm, dry and intact, no erythema, no rash. HENT: bilateral external ears normal, oropharynx moist, nose normal. Head:: Normocephalic, atraumatic. Neck: Trachea midline. Eyes: EOMI, Normal conjunctiva, No drainage CARDIOVASCULAR: Regular rate and rhythm RESPIRATORY: No respiratory distress Back: Full range of motion. MUSCULOSKELETAL: Full range of motion of bilateral upper and lower extremities. GASTROINTESTINAL: Abdomen soft without rebound or guarding. NEUROLOGICAL: Alert and noted to person, place and time. No neurological deficits observed Psychiatric: Cooperative. poor judgment Current Patient Data: Vital Signs: Vital Signs Date Time Temp Pulse Resp B/P (MAP) Pulse Ox O2 Delivery O2 Flow Rate FiO2 04/18/21 02:57 98.1 93 15 148/74 (98) 96 Room Air 98.1 EKG: EKG: [] Radiology/Procedures: Radiology/Procedures: [] Course & Med Decision Making: Course & Med Decision Making Pertinent Labs and Imaging studies reviewed. (See chart for details) [] Patient was evaluated for chief complaint. Work-up consisted of laboratory analysis. Patient was requesting Klonopin. She received a dose of 0.5 mg. Patient is alcohol resulted greater than 300. Patient was observed and then eventually fell asleep. Upon reevaluation patient states she would like to be discharged home. Patient clinically sober. Patient will be discharged home per her request. Patient will be given follow- up information. Bailey Disclaimer: Bailey Disclaimer: This electronic medical record was generated, in whole or in part, using a voice recognition dictation system. Departure Departure Impression: Primary Impression: Alcohol abuse Disposition: HOME / SELF CARE / HOMELESS Condition: STABLE Referrals: GISSELL ROMERO MD (PCP) Patient Instructions: Alcohol Intoxication, Alcohol Problems CHERIE ESPOSITO DO Apr 18, 2021 03:48
[2021-04-18] MEDS: clonazePAM 0.5 MG TABLET PO PRN (04:04)
[2021-04-18 04:08] LABS: BASO # 0.1 x10^3/uL (0.0-0.2); BASO % 1 % (0-3); EOS # 0.1 x10^3/uL (0.0-0.7); EOS % 1 % (0-3); HEMATOCRIT 42.7 % (36.0-47.0); HEMOGLOBIN 14.8 g/dL (12.0-15.5); LYMPH # 4.1 x10^3/uL (1.0-4.8); LYMPH % 38 % (24-48); MEAN CORPUSCULAR HEMOGLOBIN 34 pg (25-35); MEAN CORPUSCULAR HGB CONC 35 g/dL (31-37); MEAN CORPUSCULAR VOLUME 98 fL (79-100); MONO # 0.9 x10^3/uL (0.0-1.1); MONO % 8 % (0-9); NEUT # 5.5 x10^3/uL (1.8-7.7); NEUT % 51 % (31-73); PLATELET COUNT 292 x10^3/uL (140-400); RED BLOOD COUNT 4.37 x10^6/uL (3.50-5.40); RED CELL DISTRIBUTION WIDTH 13.9 % (11.5-14.5); WHITE BLOOD COUNT 10.8 x10^3/uL (4.0-11.0)
[2021-04-18 04:14] LABS: BARBITURATES NEG (NEG); BENZODIAZEPINES NEG (NEG); CANNABINOIDS POS (NEG); COCAINE NEG (NEG); METHADONE NEG (NEG); OPIATES NEG (NEG); PHENCYCLIDINE NEG (NEG)
[2021-04-18 04:15] LABS: AMPHETAMINE/METHAMPHETAMINE NEG (NEG)
[2021-04-18 04:15] LABS: CALCIUM 9.1 mg/dL (8.5-10.1); CREATININE 1.7 mg/dL (0.6-1.0); GFR 32.2; POTASSIUM 3.7 mmol/L (3.5-5.1)
[2021-04-18 04:22] LABS: ALBUMIN 3.8 g/dL (3.4-5.0); ALBUMIN/GLOBULIN RATIO 0.7 (1.0-1.7); TOTAL BILIRUBIN 0.2 mg/dL (0.2-1.0); TOTAL PROTEIN 9.4 g/dL (6.4-8.2)
[2021-04-18 06:20] VITALS: BP 105/56
[2021-04-18] MEDS ORDERED: AMMONIA AROMATIC 15% INHALANT AMPUL. ONE (06:21)
--- NOTE | 2021-04-18 17:47 | NUR ---
IP: Attempted to contact pt concerning covid results. No answer, left a voicemail to return the call.
--- NOTE | 2021-04-19 17:29 | NUR ---
IP: Informed pt of negative covid test. Pt verbalized understanding.
== END 2021-04-18 06:31 | disposition home or self-care (01) ==
LOC: ER 02:57
DX: F10.129 Alcohol abuse with intoxication, unspecified (principal); Y90.8 Blood alcohol level of 240 mg/100 ml or more; Z20.822 Contact with and (suspected) exposure to COVID-19; E11.9 Type 2 diabetes mellitus without complications; F17.200 Nicotine dependence, unspecified, uncomplicated
CPT/HCPCS: 36415; 80053; 80307; 85025; 87426; 99283; G0480; U0003; U0005